=== PATIENT | female | born 1940 | race Caucasian/White ===

== ENCOUNTER 2017-12-18 05:08 | Outpatient (CLI) | payer MEDICARE | END 2017-12-18 23:59 | disposition home or self-care (01) | LOC: DIABETIC 05:08 | PROVIDERS: ATTEND Specialist | DX: E11.9 Type 2 diabetes mellitus without complications (principal) | CPT/HCPCS: G0108 ==

== ENCOUNTER 2018-05-04 00:27 | Outpatient (CLI) | payer MEDICARE | END 2018-05-04 23:59 | disposition home or self-care (01) | LOC: DIABETIC 00:27 | PROVIDERS: ATTEND Specialist | DX: E11.9 Type 2 diabetes mellitus without complications (principal) | CPT/HCPCS: G0108 ==

== ENCOUNTER 2018-09-16 01:18 | Outpatient (CLI) | payer MEDICARE, BC | END 2018-09-16 23:59 | disposition home or self-care (01) | LOC: DIABETIC 01:18 | PROVIDERS: ATTEND Specialist | DX: E11.9 Type 2 diabetes mellitus without complications (principal); Z79.84 Long term (current) use of oral hypoglycemic drugs; Z79.899 Other long term (current) drug therapy; Z79.4 Long term (current) use of insulin; Z91.030 Bee allergy status; Z91.048 Other nonmedicinal substance allergy status; Z88.8 Allergy status to other drugs, medicaments and biological substances | CPT/HCPCS: G0108 ==

== ENCOUNTER 2019-01-31 09:22 | Emergency (ER) | payer MEDICARE, BC ==
[~2019-01-31] VITALS: Ht 167.6 cm; Wt 100.0 kg
[2019-01-31 09:27] VITALS: BP 145/86
--- NOTE | 2019-01-31 11:17 | NUR ---
JANICE Brown FROM PTW AT BEDSIDE NOW EVALUATING THE PATIENT.
[2019-01-31] MEDS ORDERED: METO100T14 PO (11:53)
[2019-01-31] MEDS ORDERED: LANTUS SQ (11:53)
[2019-01-31] MEDS ORDERED: TURM538C PO (11:53)
[2019-01-31] MEDS ORDERED: DULO-31 PO (11:53)
[2019-01-31] MEDS ORDERED: METF500T PO (11:53)
[2019-01-31] MEDS ORDERED: MIRT15TA PO (11:53)
[2019-01-31] MEDS ORDERED: GLIP10TA11 PO (11:53)
--- NOTE | 2019-01-31 12:00 | NUR ---
NOTIFIED BY CHARGE NURSE MICHAEL THAT URINE WAS OBTAINED.
[2019-01-31] MEDS ORDERED: ROSU40TA PO (12:07)
[2019-01-31] MEDS ORDERED: [UNRECOGNIZED DRUG - OTHER] PO (12:07)
[2019-01-31] MEDS ORDERED: DABI150C PO (12:07)
[2019-01-31] MEDS ORDERED: FEXO-124 PO (12:07)
[2019-01-31] MEDS ORDERED: POTA10TA15 PO (12:07)
[2019-01-31] MEDS ORDERED: [UNRECOGNIZED DRUG - OTHER] (12:07)
[2019-01-31] MEDS ORDERED: cholecalciferol PO (12:07)
[2019-01-31] MEDS ORDERED: DILT-35 PO (12:07)
[2019-01-31] MEDS ORDERED: HYDR-4383 PO (12:07)
[2019-01-31] MEDS ORDERED: FURO-150 PO (12:07)
[2019-01-31 12:10] LABS: CLARITY,URINE CLOUDY (Clear); COLOR,URINE YELLOW (Yellow); GLUCOSE, URINE NEGATIVE (Neg); KETONES,URINE TRACE mg/dl (Neg); LEUKOCYTE ESTERASE ,URINE NEGATIVE (Neg); NITRITES, URINE POSITIVE (Neg); OCCULT BLOOD,URINE TRACE-INTACT (Neg); PH,URINE 5.5 (4.8-8.0); PROTEIN,URINE 30 mg/dl (Neg); UROBILINOGEN,URINE 0.2 E.U/dL (0.2-1.0)
[2019-01-31] MEDS ORDERED: MULT-1133 PO (12:11)
[2019-01-31] MEDS ORDERED: LACT1CAP74 PO (12:11)
[2019-01-31] MEDS ORDERED: ARIP5TAB4 PO (12:11)
[2019-01-31] MEDS ORDERED: VITA-268 PO (12:11)
[2019-01-31] MEDS ORDERED: FLUT16SP2 BOTHNARES (12:11)
[2019-01-31 12:13] LABS: BASOPHILS # (AUTO) 0.1 X10'3 (0-0.2); BASOPHILS % (AUTO) 0.6 % (0-1); EOSINOPHILS # (AUTO) 0.2 X10'3 (0-0.9); EOSINOPHILS % (AUTO) 1.7 % (0-6); HEMATOCRIT 34.5 % (35.0-45.0); HEMOGLOBIN 11.5 g/dl (12.0-16.0); LYMPHOCYTES # (AUTO) 1.8 X10'3 (1.1-4.8); LYMPHOCYTES % (AUTO) 19.6 % (21-51); MEAN CORPUSCULAR HEMOGLOBIN 28.9 PG (27.0-31.0); MEAN CORPUSCULAR HGB CONC 33.4 g/dL (33.0-36.5); MEAN CORPUSCULAR VOLUME 86.5 FL (78-98); MEAN PLATELET VOLUME 7.1 FL (7.4-10.4); MONOCYTES # (AUTO) 0.6 X10'3 (0-0.9); MONOCYTES % (AUTO) 6.6 % (2-12); NEUTROPHILS # (AUTO) 6.5 X10'3 (1.8-7.7); NEUTROPHILS % (AUTO) 71.5 % (42-75); PLATELET COUNT 353 X10'3 (140-440); RED BLOOD COUNT 3.99 X10'6 (4.20-5.60); RED CELL DISTRIBUTION WIDTH 15.8 % (11.5-14.5); WHITE BLOOD COUNT 9.1 X10'3 (4.5-11.0)
[2019-01-31 12:14] LABS: UA COLLECTION TYPE CLN CATCH MIDSTREAM
[2019-01-31 12:17] LABS: HYALINE CASTS 0-3 /LPF (NEGATIVE); MUCUS STRANDS MANY /LPF (Neg); SQUAMOUS EPITHELIAL CELL,UR MANY /LPF (FEW)
[2019-01-31 12:18] LABS: BACTERIA,URINE 4+ /HPF (Neg); RBC,URINE 0-2 /HPF (0-2)
[2019-01-31 12:22] LABS: ALANINE AMINOTRANSFERASE 26 U/L (12-78); ALBUMIN 3.3 G/DL (3.4-5.0); ALBUMIN/GLOBULIN RATIO 0.9 (1.1-1.5); ALKALINE PHOSPHATASE 87 IU/L (46-116); ANION GAP 8 (8-16); ASPARTATE AMINO TRANSFERASE 22 U/L (10-37); BILIRUBIN,TOTAL 0.4 MG/DL (0.1-1.0); BLOOD UREA NITROGEN 15 MG/DL (7-18); BUN/CREATININE RATIO 13.2 (6.6-38.0); CALCIUM 10.3 MG/DL (8.5-10.1); CHLORIDE 104 MMOL/L (99-107); CREATININE 1.14 MG/DL (0.40-0.90); GLUCOSE 96 MG/DL (70-104); POTASSIUM 4.2 MMOL/L (3.5-5.1); SODIUM 141 MMOL/L (135-145); TOTAL CARBON DIOXIDE 29.4 MMOL/L (24-32); TOTAL PROTEIN 7.1 G/DL (6.4-8.2); eGFR 46 ML/MIN
[2019-01-31 12:23] LABS: URINE AMPHETAMINE SCREEN NEGATIVE (Neg); URINE BARBITUATE SCREEN NEGATIVE (Neg); URINE BENZODIAZEPINES SCREEN POSITIVE (Neg); URINE CANNABINOID SCREEN NEGATIVE (Neg); URINE COCAINE SCREEN NEGATIVE (Neg); URINE METHADONE SCREEN NEGATIVE (Neg); URINE OPIATE SCREEN NEGATIVE (Neg); URINE PHENCYCLIDINE SCREEN NEGATIVE (Neg)
[2019-01-31 12:34] LABS: ETHANOL < 0.010 GM/DL (0.0-0.010)
[2019-02-07] MEDS ORDERED: MIRT15TA PO (11:33)
[2019-02-07] MEDS ORDERED: CIPR250T4 PO (11:33)
[2019-02-07] MEDS ORDERED: DULO-31 PO (11:33)
[2019-02-07] MEDS ORDERED: ARIP5TAB4 PO (11:34)
[2019-02-07] MEDS ORDERED: PRAZ1CAP5 PO (12:29)
== END 2019-01-31 13:13 ==
LOC: ER 09:24
DX: F32.9 Major depressive disorder, single episode, unspecified (principal); R45.851 Suicidal ideations; E66.9 Obesity, unspecified; I48.91 Unspecified atrial fibrillation; E78.00 Pure hypercholesterolemia, unspecified; I10 Essential (primary) hypertension; Z98.890 Other specified postprocedural states; Z79.899 Other long term (current) drug therapy; Z79.4 Long term (current) use of insulin
CPT/HCPCS: 36415; 80053; 80305; 80320; 81001; 84443; 85025; 99284; 99285

== ENCOUNTER 2019-01-31 13:00 | Inpatient (IN) | payer MEDICARE, BC | END 2019-02-07 12:40 | disposition still patient (30) | LOC: ED HOLD 13:00 → ADULT MH 02-05 11:45 | DX: F33.9 Major depressive disorder, recurrent, unspecified (principal); F43.10 Post-traumatic stress disorder, unspecified; F41.8 Other specified anxiety disorders; E11.9 Type 2 diabetes mellitus without complications ==

== ENCOUNTER 2019-04-19 10:27 | Emergency (ER) | payer MEDICARE, BC ==
[~2019-04-19] VITALS: Ht 162.6 cm; Wt 102.3 kg
[~2019-04-19 10:27] MED LIST: ARIP5TAB4 PO; CIPR250T4 PO; DABI150C PO; DILT-35 PO; DULO-31 PO; FEXO-124 PO; FLUT16SP2 BOTHNARES; FURO-150 PO; GLIP10TA11 PO; HYDR-4383 PO; LACT1CAP74 PO; LANTUS SQ; METF500T PO; METO100T14 PO; MIRT15TA PO; MULT-1133 PO; POTA10TA15 PO; PRAZ1CAP5 PO; ROSU40TA PO; TURM538C PO; VITA-268 PO; [UNRECOGNIZED DRUG - OTHER]; [UNRECOGNIZED DRUG - OTHER] PO; cholecalciferol PO
[2019-04-19 11:31] LABS: BASOPHILS # (AUTO) 0.1 X10'3 (0-0.2); BASOPHILS % (AUTO) 0.7 % (0-1); EOSINOPHILS # (AUTO) 0.1 X10'3 (0-0.9); EOSINOPHILS % (AUTO) 1.4 % (0-6); HEMATOCRIT 33.3 % (35.0-45.0); LYMPHOCYTES # (AUTO) 1.4 X10'3 (1.1-4.8); LYMPHOCYTES % (AUTO) 18.8 % (21-51); MEAN CORPUSCULAR HEMOGLOBIN 28.8 PG (27.0-31.0); MEAN CORPUSCULAR VOLUME 87.4 FL (78-98); MEAN PLATELET VOLUME 7.5 FL (7.4-10.4); MONOCYTES # (AUTO) 0.5 X10'3 (0-0.9); MONOCYTES % (AUTO) 6.7 % (2-12); NEUTROPHILS # (AUTO) 5.6 X10'3 (1.8-7.7); NEUTROPHILS % (AUTO) 72.4 % (42-75); PLATELET COUNT 281 X10'3 (140-440); RED BLOOD COUNT 3.81 X10'6 (4.20-5.60); RED CELL DISTRIBUTION WIDTH 14.8 % (11.5-14.5); WHITE BLOOD COUNT 7.7 X10'3 (4.5-11.0)
[2019-04-19] MEDS ORDERED: LORazepam 1 MG tablet PO ONE (11:40)
[2019-04-19 11:43] LABS: ALANINE AMINOTRANSFERASE 22 U/L (12-78); ALBUMIN 3.4 G/DL (3.4-5.0); ALBUMIN/GLOBULIN RATIO 0.9 (1.1-1.5); ALKALINE PHOSPHATASE 90 IU/L (46-116); ANION GAP 5 (8-16); ASPARTATE AMINO TRANSFERASE 22 U/L (10-37); BILIRUBIN,TOTAL 0.4 MG/DL (0.1-1.0); BLOOD UREA NITROGEN 19 MG/DL (7-18); BUN/CREATININE RATIO 17.9 (6.6-38.0); CALCIUM 9.7 MG/DL (8.5-10.1); CHLORIDE 103 MMOL/L (99-107); CREATININE 1.06 MG/DL (0.40-0.90); GLUCOSE 125 MG/DL (70-104); POTASSIUM 4.5 MMOL/L (3.5-5.1); SODIUM 138 MMOL/L (135-145); eGFR 50 ML/MIN
[2019-04-19 11:53] LABS: ETHANOL < 0.010 GM/DL (0.0-0.010)
[2019-04-19 12:33] LABS: CLARITY,URINE CLOUDY (Clear); COLOR,URINE YELLOW (Yellow); GLUCOSE, URINE NEGATIVE (Neg); KETONES,URINE TRACE mg/dl (Neg); LEUKOCYTE ESTERASE ,URINE TRACE (Neg); NITRITES, URINE POSITIVE (Neg); OCCULT BLOOD,URINE NEGATIVE (Neg); PROTEIN,URINE TRACE mg/dl (Neg); UROBILINOGEN,URINE 0.2 E.U/dL (0.2-1.0)
[2019-04-19 12:35] LABS: UA COLLECTION TYPE STRAIGHT CATH
[2019-04-19 12:39] LABS: BACTERIA,URINE 4+ /HPF (Neg); SQUAMOUS EPITHELIAL CELL,UR FEW /LPF (FEW); TRANSITIONAL EPI CELLS,URINE MODERATE /HPF
[2019-04-19 12:40] LABS: RBC,URINE 0-2 /HPF (0-2)
[2019-04-19 13:01] LABS: URINE AMPHETAMINE SCREEN NEGATIVE (Neg); URINE BARBITUATE SCREEN NEGATIVE (Neg); URINE BENZODIAZEPINES SCREEN POSITIVE (Neg); URINE CANNABINOID SCREEN NEGATIVE (Neg); URINE COCAINE SCREEN NEGATIVE (Neg); URINE METHADONE SCREEN NEGATIVE (Neg); URINE OPIATE SCREEN NEGATIVE (Neg); URINE PHENCYCLIDINE SCREEN NEGATIVE (Neg)
[2019-04-19] MEDS ORDERED: FURO-150 PO (13:01)
[2019-04-19] MEDS ORDERED: PRAZ1CAP5 PO (13:01)
[2019-04-19] MEDS ORDERED: METO100T14 PO (13:01)
[2019-04-19] MEDS ORDERED: ACET-2119 PO (13:01)
[2019-04-19] MEDS ORDERED: HYDR-4383 PO (13:01)
[2019-04-19] MEDS ORDERED: METF-436 PO (13:01)
[2019-04-19] MEDS ORDERED: FLUT16SP2 BOTHNARES (13:01)
[2019-04-19] MEDS ORDERED: GLIP10TA11 PO (13:01)
[2019-04-19] MEDS ORDERED: MIRT15TA PO (13:01)
[2019-04-19] MEDS ORDERED: VALB40CA PO (13:01)
[2019-04-19] MEDS ORDERED: ROSU40TA PO (13:01)
[2019-04-19] MEDS ORDERED: DULO60CA64 PO (13:01)
[2019-04-19] MEDS ORDERED: DABI150C PO (13:01)
[2019-04-19] MEDS ORDERED: CHOL100046 PO (13:01)
[2019-04-19] MEDS ORDERED: FEXO-62 PO (13:01)
[2019-04-19] MEDS ORDERED: POTA10TA15 PO (13:01)
[2019-04-19] MEDS ORDERED: CLON0.1T PO (13:01)
[2019-04-19] MEDS ORDERED: DILT-35 PO (13:01)
[2019-04-19] MEDS ORDERED: INSU100V9 SQ (13:01)
[2019-04-19] MEDS ORDERED: furosemide 20MG tablet PO PRN (13:30)
[2019-04-19] MEDS ORDERED: prazosin 1mg capsule PO PRN (13:30)
[2019-04-19] MEDS ORDERED: acetaminophen 325mg tablet PO PRN (13:30)
--- NOTE | 2019-04-19 14:35 | NUR ---
PT REQUESTED BED PAIN TO URINATE. TECH ASSISTED PT TO COMMODE.
[2019-04-19] MEDS: metFORMIN 500mg tablet PO SCH (18:15)
[2019-04-19] MEDS: glipizide 5mg tablet PO SCH (18:16)
[2019-04-19] MEDS ORDERED: cloNIDine 0.1 mg tablet PO SCH (20:00)
[2019-04-19] MEDS: metoprolol tartrate 50mg tablet PO SCH (20:00)
[2019-04-19] MEDS: mirtazapine 15mg tablet PO SCH (20:35)
[2019-04-19] MEDS: LORazepam 1 MG tablet PO SCH (20:35)
[2019-04-19] MEDS: busPIRone 5mg tablet PO SCH (20:36)
[2019-04-19] MEDS: dabigatran 150mg capsule PO SCH (21:49)
[2019-04-19] MEDS: insulin glargine (Lantus) pen - multi-dose SQ SCH (22:22)
--- NOTE | 2019-04-19 22:38 | NUR ---
ACCIDENTLY UNDER CATHY'S NAME FOR CHARTING ASSUMED CARE. CORRECT IS MILADIS. RECHARTED THESE BUT HIS ARE STILL THERE.
--- NOTE | 2019-04-19 22:39 | NUR ---
PATIENT NEEDS TWO PERSON ASSIST TO COMMODE
--- NOTE | 2019-04-19 22:52 | NUR ---
I returned the metoprolol, but forgot to scan it before I closed the lid, so it never showed it was returned. There was a very small amount of blood urinated in the commode. Will continue to monitor.
--- NOTE | 2019-04-20 06:13 | NUR ---
Transferred patient care to Meseret RN.
--- NOTE | 2019-04-20 06:30 | NUR ---
Patient requesting to use the commode. Assisted to the commode. Voided small amount. Returned to bed with assist.
[2019-04-20] MEDS ORDERED: VALBENAZINE TOSYLATE PO SCH (08:00)
--- NOTE | 2019-04-20 08:30 | NUR ---
Remains awake. States she feels urinary urgency. Assisted on to the commode. Voided small amount. Returned to bed. Assisted with breakfast. Both hands trembling. Ate only oatmeal and a little coffee cake. Fluids encouraged. Took sips of coffee. All medications administered as ordered.
[2019-04-20] MEDS: busPIRone 5mg tablet PO SCH ×2 (09:05→20:39)
[2019-04-20] MEDS: vitamin D (cholecalciferol) 1,000 unit tablet PO SCH (09:06)
[2019-04-20] MEDS: atorvastatin 20mg tablet PO SCH (09:06)
[2019-04-20] MEDS: cloNIDine 0.1 mg tablet PO SCH (09:09)
[2019-04-20] MEDS: glipizide 5mg tablet PO SCH ×2 (09:09→17:16)
[2019-04-20] MEDS: metoprolol tartrate 50mg tablet PO SCH ×2 (09:09→20:40)
[2019-04-20] MEDS: metFORMIN 500mg tablet PO SCH ×2 (09:09→17:16)
[2019-04-20] MEDS: diltiazem CD 120mg capsule (once-daily) PO SCH (09:09)
[2019-04-20] MEDS: dabigatran 150mg capsule PO SCH ×2 (09:10→20:39)
[2019-04-20] MEDS: duloxetine 30mg CAPSULE.DR PO SCH ×2 (09:10→20:40)
[2019-04-20] MEDS: potassium chloride 10mEq ER tablet PO SCH (09:10)
[2019-04-20] MEDS: loratadine 10mg tablet PO SCH (09:10)
[2019-04-20] MEDS: fluticasone nasal spray 16GM bottle NS SCH (09:11)
--- NOTE | 2019-04-20 09:30 | NUR ---
Bladder scanner used at this time to determine possible urinary retention. 660 ml noted to be in bladder. Order received for blackwell catheter. 440 ml returned.
--- NOTE | 2019-04-20 10:00 | NUR ---
at bedside visiting with . Presents as loving and devoted.
[2019-04-20] MEDS: VALBENAZINE 40 MG PO SCH (10:32)
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
[2019-04-20] MEDS: cephalexin 250mg capsule PO SCH ×3 (13:35→20:39)
[2019-04-20] MEDS ORDERED: mineral oil 133ml enema RC PRN (16:25)
--- NOTE | 2019-04-20 16:30 | NUR ---
Dr. George called to say he was talking with Dr. Katz about admitting patient to a medical floor as patient is unable to be accepted to [facility] as she does not meet the age critria at this time.
--- NOTE | 2019-04-20 16:45 | NUR ---
Charge Nurse Alyssia notified that Dr. George would like patient to be placed on a medical floor per protocol of the ER.
--- NOTE | 2019-04-20 17:41 | NUR ---
Spoke with Meseret RN regarding patient, she stated that psyciatrist stated that patient may need to be admitted due to chronic conditions. Dr. Torres stated that patient did not need psyciatric admit and would assist with over seeing patient on medical unit if needed. Dr. Torres spoke with Dr. Katz who stated that an ER physician would have to place patient up for admission. Peace RAGSDALE notified regarding this and gave verbal order for redraw on CBC and CMP, also that he would speak with Dr. Coulter regarding patients potential admit.
--- NOTE | 2019-04-20 17:51 | NUR ---
Mineral oil enema administered per patient request. Patient states she sufferes from irritable bowel syndrome and believes she is impacted. No results as of this time.
[2019-04-20 18:02] LABS: BASOPHILS # (AUTO) 0.1 X10'3 (0-0.2); BASOPHILS % (AUTO) 0.8 % (0-1); EOSINOPHILS # (AUTO) 0.1 X10'3 (0-0.9); EOSINOPHILS % (AUTO) 1.5 % (0-6); HEMOGLOBIN 11.1 g/dl (12.0-16.0); LYMPHOCYTES # (AUTO) 1.9 X10'3 (1.1-4.8); LYMPHOCYTES % (AUTO) 25.1 % (21-51); MEAN CORPUSCULAR HEMOGLOBIN 29.1 PG (27.0-31.0); MEAN CORPUSCULAR HGB CONC 33.7 g/dL (33.0-36.5); MEAN CORPUSCULAR VOLUME 86.4 FL (78-98); MEAN PLATELET VOLUME 7.3 FL (7.4-10.4); MONOCYTES # (AUTO) 0.6 X10'3 (0-0.9); MONOCYTES % (AUTO) 7.8 % (2-12); NEUTROPHILS # (AUTO) 4.9 X10'3 (1.8-7.7); NEUTROPHILS % (AUTO) 64.8 % (42-75); PLATELET COUNT 272 X10'3 (140-440); RED BLOOD COUNT 3.81 X10'6 (4.20-5.60); RED CELL DISTRIBUTION WIDTH 15.2 % (11.5-14.5); WHITE BLOOD COUNT 7.6 X10'3 (4.5-11.0)
[2019-04-20 18:16] LABS: ALANINE AMINOTRANSFERASE 20 U/L (12-78); ALBUMIN/GLOBULIN RATIO 0.8 (1.1-1.5); ALKALINE PHOSPHATASE 84 IU/L (46-116); ANION GAP 6 (8-16); ASPARTATE AMINO TRANSFERASE 18 U/L (10-37); BILIRUBIN,TOTAL 0.3 MG/DL (0.1-1.0); BLOOD UREA NITROGEN 15 MG/DL (7-18); CALCIUM 9.6 MG/DL (8.5-10.1); CHLORIDE 105 MMOL/L (99-107); CREATININE 1.07 MG/DL (0.40-0.90); GLUCOSE 81 MG/DL (70-104); POTASSIUM 4.4 MMOL/L (3.5-5.1); SODIUM 139 MMOL/L (135-145); TOTAL CARBON DIOXIDE 27.6 MMOL/L (24-32); TOTAL PROTEIN 6.7 G/DL (6.4-8.2); eGFR 50 ML/MIN
--- NOTE | 2019-04-20 19:05 | NUR ---
One to one with the patient to assess severity of depressive symptoms and self harm risk. The patient is very pleasant during the evening assessment. She stated that her anxiety is very high because she is unsure of what the next step is and where she will be going to from here. She denies any kind of auditory or visual hallucinations. She stated that her mood was "not as good as yesterday" "I have a whole host of problems and I think everyone would be better off without me" Stated that she has been depressed all of her life. She has never had a suicide attempt but prior to coming to the ER she was thinking about overdosing on all of her medications. She stated, "But I was afraid I would just mess things up. It's getting harder to do things from my wheelchair" She is fully oriented.
[2019-04-20] MEDS: LORazepam 1 MG tablet PO SCH (20:39)
[2019-04-20] MEDS: mirtazapine 15mg tablet PO SCH (20:40)
[2019-04-20] MEDS: insulin glargine (Lantus) pen - multi-dose SQ SCH (20:50)
--- NOTE | 2019-04-20 21:00 | NUR ---
Patient resting on her bed and appears to be asleep
--- NOTE | 2019-04-20 22:02 | NUR ---
Received telephone call from reported relatives of the patient stating they were the son and grand daughter. They became very angry when told information could not be given over the phone due to privacy laws. The grand daughter demanded to talk to manager inpatient and phone transferred to weathercaster. weathercaster was made aware of circumstances.
--- NOTE | 2019-04-21 00:26 | NUR ---
The patient appears to be asleep
--- NOTE | 2019-04-21 03:10 | NUR ---
The patient appears to be sleeping.
--- NOTE | 2019-04-21 03:11 | NUR ---
Placement Note: [facility] is continuing to look for placement. Per hospitalist the patient does not meet acuity to be admitted to a medical floor. Dr. George would like to be contacted if the patient is being considered for discharge.
--- NOTE | 2019-04-21 05:04 | NUR ---
The patient appears to be sleeping
--- NOTE | 2019-04-21 06:30 | NUR ---
Received report from Humaira ORELLANA Patient asleep at this time with C-PAP in place Breathing even and unlabored
--- NOTE | 2019-04-21 07:45 | NUR ---
Blood Glucose Performed = 60 Patient states she feels fine Given a box of juice Served breakfast Encouraged to eat all of her food Patient stated "I don't want to get fat." Encouraged to eat just the same
[2019-04-21] MEDS: metFORMIN 500mg tablet PO SCH (08:21)
[2019-04-21] MEDS: atorvastatin 20mg tablet PO SCH (08:22)
[2019-04-21] MEDS: busPIRone 5mg tablet PO SCH (08:22)
[2019-04-21] MEDS: glipizide 5mg tablet PO SCH (08:23)
[2019-04-21] MEDS: HYDROcodone/acetaminophen 5mg/325mg tablet PO PRN ×2 (08:23→15:14)
[2019-04-21] MEDS: cloNIDine 0.1 mg tablet PO SCH (08:23)
[2019-04-21] MEDS: vitamin D (cholecalciferol) 1,000 unit tablet PO SCH (08:24)
[2019-04-21] MEDS: cephalexin 250mg capsule PO SCH ×2 (08:24→13:57)
[2019-04-21] MEDS: duloxetine 30mg CAPSULE.DR PO SCH (08:24)
[2019-04-21] MEDS: dabigatran 150mg capsule PO SCH (08:26)
[2019-04-21] MEDS: VALBENAZINE 40 MG PO SCH (08:26)
[2019-04-21] MEDS: loratadine 10mg tablet PO SCH (08:26)
[2019-04-21] MEDS: fluticasone nasal spray 16GM bottle NS SCH (08:26)
[2019-04-21] MEDS: potassium chloride 10mEq ER tablet PO SCH (08:27)
--- NOTE | 2019-04-21 08:30 | NUR ---
Ate 90% of her meal. Patient states she is suffering from "sharp pains in her abdomen." Requesting to be disimpacted Dr. Bailey consulted. Order given to disimpact patient
[2019-04-21] MEDS: metoprolol tartrate 50mg tablet PO SCH (08:48)
[2019-04-21] MEDS: LORazepam 1 MG tablet PO PRN ×2 (08:48→15:13)
[2019-04-21] MEDS: diltiazem CD 120mg capsule (once-daily) PO SCH (08:55)
--- NOTE | 2019-04-21 09:30 | NUR ---
Patient disimpacted per her consent and doctor's order. Multiple hard balls of feces, of all sizes, removed from patient's rectum. Feces noted to have smears of armani blood around them. Nurse Alyssia consulted. Came to patient's room to observe feces. Stated she would speak with Dr. Bailey about this matter.
--- NOTE | 2019-04-21 09:40 | NUR ---
Per Dr. Bailey, blood in stool possiby secondary to hemorrhoids. Will contuinue to monitor.
--- NOTE | 2019-04-21 09:45 | NUR ---
Patient out of bed and into wheel chair. Bed linen changed and assisted into fresh gowns. Assited back into bed per her request
--- NOTE | 2019-04-21 11:35 | NUR ---
pt just got back into bed, talking with staff, no s/s of distress observed
--- NOTE | 2019-04-21 11:58 | NUR ---
spoke to Alberta at the [facility] [phone] went over pt medications with her, I told her that the primary RN would call her when she gets back with any questions
--- NOTE | 2019-04-21 14:24 | NUR ---
at bedside visiting with . Fabiola at bedside speaking with about possible discharge to home.
--- NOTE | 2019-04-21 14:48 | NUR ---
Patient states she is ready to go with . Dr. Bailey notified. Order given to discharge.
[2019-04-21] MEDS ORDERED: CEPH-572 PO (15:00)
--- NOTE | 2019-04-21 15:30 | NUR ---
Discharge Summary Patient discharged to home accompanied by , with all her personal belongings, including CPAP. Will follow-up with the day program at [facility]. and patient are satisfied with the discharge plan. Given a prescription for Keflex for UTI
[2019-04-21 16:22] VITALS: BP 125/75
[2019-04-22] MEDS ORDERED: VALBENAZINE PO SCH (08:00)
== END 2019-04-21 15:30 | disposition home or self-care (01) ==
LOC: ER 10:27
DX: F32.9 Major depressive disorder, single episode, unspecified (principal); I48.91 Unspecified atrial fibrillation; E78.00 Pure hypercholesterolemia, unspecified; I10 Essential (primary) hypertension
CPT/HCPCS: 36415; 80053; 80305; 80320; 81001; 82948; 84443; 85025; 96372; 99285; J1815; P9612

== ENCOUNTER 2019-06-08 11:07 | Emergency (ER) | payer MEDICARE, BC ==
[~2019-06-08] VITALS: Ht 162.6 cm; Wt 105.0 kg
[~2019-06-08 11:07] MED LIST changes: +ACET-2119 PO; -ARIP5TAB4 PO; +CHOL100046 PO; -CIPR250T4 PO; +CLON0.1T PO; -DULO-31 PO; +DULO60CA65 PO; -FEXO-124 PO; +FEXO-62 PO; +INSU100V9 SQ; -LACT1CAP74 PO; -LANTUS SQ; +METF-436 PO; -METF500T PO; -MULT-1133 PO; -TURM538C PO; +VALB40CA PO; -VITA-268 PO; -[UNRECOGNIZED DRUG - OTHER]; -[UNRECOGNIZED DRUG - OTHER] PO; -cholecalciferol PO
[2019-06-08 11:48] LABS: BASOPHILS % (AUTO) 0.5 % (0-1); EOSINOPHILS # (AUTO) 0.1 X10'3 (0-0.9); EOSINOPHILS % (AUTO) 0.8 % (0-6); HEMATOCRIT 40.7 % (35.0-45.0); HEMOGLOBIN 13.4 g/dl (12.0-16.0); LYMPHOCYTES # (AUTO) 1.8 X10'3 (1.1-4.8); LYMPHOCYTES % (AUTO) 18.4 % (21-51); MEAN CORPUSCULAR HEMOGLOBIN 28.8 PG (27.0-31.0); MEAN CORPUSCULAR VOLUME 87.2 FL (78-98); MEAN PLATELET VOLUME 7.2 FL (7.4-10.4); MONOCYTES # (AUTO) 0.7 X10'3 (0-0.9); MONOCYTES % (AUTO) 7.4 % (2-12); NEUTROPHILS # (AUTO) 7.2 X10'3 (1.8-7.7); NEUTROPHILS % (AUTO) 72.9 % (42-75); PLATELET COUNT 369 X10'3 (140-440); RED BLOOD COUNT 4.67 X10'6 (4.20-5.60); RED CELL DISTRIBUTION WIDTH 15.9 % (11.5-14.5); WHITE BLOOD COUNT 9.9 X10'3 (4.5-11.0)
[2019-06-08 12:04] LABS: ALANINE AMINOTRANSFERASE 26 U/L (12-78); ALBUMIN 3.4 G/DL (3.4-5.0); ALBUMIN/GLOBULIN RATIO 0.9 (1.1-1.5); ALKALINE PHOSPHATASE 102 IU/L (46-116); ANION GAP 10 (8-16); ASPARTATE AMINO TRANSFERASE 19 U/L (10-37); BILIRUBIN,TOTAL 0.5 MG/DL (0.1-1.0); BLOOD UREA NITROGEN 18 MG/DL (7-18); BUN/CREATININE RATIO 16.2 (6.6-38.0); CHLORIDE 100 MMOL/L (99-107); CREATININE 1.11 MG/DL (0.40-0.90); GLUCOSE 179 MG/DL (70-104); POTASSIUM 4.5 MMOL/L (3.5-5.1); SODIUM 134 MMOL/L (135-145); TOTAL CARBON DIOXIDE 23.6 MMOL/L (24-32); TOTAL PROTEIN 7.4 G/DL (6.4-8.2); eGFR 48 ML/MIN
[2019-06-08 12:12] LABS: ETHANOL < 0.010 GM/DL (0.0-0.010)
--- NOTE | 2019-06-08 13:15 | NUR ---
pt is sitting in wheel chair in room, assisted to bed and into gown
--- NOTE | 2019-06-08 13:30 | NUR ---
sc[facility] worker in with pt
--- NOTE | 2019-06-08 14:36 | NUR ---
pt is in bed, present, she is calm, no agitation noted
[2019-06-08 16:57] LABS: CLARITY,URINE CLOUDY (Clear); COLOR,URINE YELLOW (Yellow); GLUCOSE, URINE NEGATIVE (Neg); KETONES,URINE TRACE mg/dl (Neg); LEUKOCYTE ESTERASE ,URINE TRACE (Neg); NITRITES, URINE POSITIVE (Neg); OCCULT BLOOD,URINE NEGATIVE (Neg); PROTEIN,URINE NEGATIVE (Neg); URINE HCG NEGATIVE (NEG); UROBILINOGEN,URINE 0.2 E.U/dL (0.2-1.0)
[2019-06-08 17:03] LABS: UA COLLECTION TYPE CLN CATCH MIDSTREAM
[2019-06-08 17:04] LABS: BACTERIA,URINE 3+ /HPF (Neg); RBC,URINE 0-2 /HPF (0-2); SQUAMOUS EPITHELIAL CELL,UR MANY /LPF (FEW); WBC CLUMPS,URINE FEW /HPF (NEGATIVE)
[2019-06-08 17:08] LABS: URINE AMPHETAMINE SCREEN NEGATIVE (Neg); URINE BARBITUATE SCREEN NEGATIVE (Neg); URINE BENZODIAZEPINES SCREEN POSITIVE (Neg); URINE CANNABINOID SCREEN NEGATIVE (Neg); URINE COCAINE SCREEN NEGATIVE (Neg); URINE METHADONE SCREEN NEGATIVE (Neg); URINE OPIATE SCREEN NEGATIVE (Neg); URINE PHENCYCLIDINE SCREEN NEGATIVE (Neg)
--- NOTE | 2019-06-08 18:08 | NUR ---
PT RESTING IN BED
--- NOTE | 2019-06-08 19:15 | NUR ---
This patient is awake and well oriented. She complains of depression. Patient feels suicidal with a plan to smother herself with a plastic bag or perhaps overdose on medications. She denies homicidal ideation. This patient makes good eye contacet. Her thoughts are linear. This patient is wheelchair bound. She can transfer to the bedside commode with assistance. Patient uses CPAP at home. This residential mortgage underwriter will receive an order for hospital CPAP. This patient is advised that she is in a safe place. Q15 minute rounding is being done.
--- NOTE | 2019-06-08 19:18 | NUR ---
Deo Al, patients .
[2019-06-08] MEDS ORDERED: olanzapine 10mg tablet PO ONE (21:55)
[2019-06-08] MEDS ORDERED: olanzapine 10mg tablet PO SCH (21:55)
[2019-06-08] MEDS ORDERED: metoprolol tartrate 50mg tablet PO ONE (21:55)
[2019-06-08] MEDS ORDERED: metFORMIN 500mg tablet PO ONE (21:55)
[2019-06-08] MEDS ORDERED: LORazepam 1 MG tablet PO ONE (21:55)
--- NOTE | 2019-06-08 22:07 | NUR ---
This com writer spoke with patients by landline. Rx med list may not be acurate on the med rec. The patients will bring up a current medication list in the am. The following meds are needed tonight based on conversation with the . Mirtazapine 15 mg PO Zyprexa 10 mg PO Metoprolol 150 mg PO CPAP
[2019-06-08] MEDS ORDERED: mirtazapine 15mg tablet PO SCH (22:35)
[2019-06-08] MEDS ORDERED: mirtazapine 15mg tablet PO ONE (22:35)
--- NOTE | 2019-06-09 01:15 | NUR ---
Patient is non conpliant on the hospital cpap. Patient loosens mask frequently, making in ineffective. Patient placed on nasal cannula.
--- NOTE | 2019-06-09 01:17 | NUR ---
Patient up from bed. Ambulates to bathroom and back to bed.
--- NOTE | 2019-06-09 01:18 | NUR ---
Patients Sa02 is 95 percent on two litres.
--- NOTE | 2019-06-09 03:56 | NUR ---
Patient was up with assistance to bedside commode to void then back to bed.
[2019-06-09] MEDS ORDERED: METO-477 PO (09:31)
[2019-06-09] MEDS ORDERED: METO-467 PO (09:31)
[2019-06-09] MEDS ORDERED: OLAN5TAB5 PO ×2 (09:31)
[2019-06-09] MEDS ORDERED: KRIL1CAP PO (09:31)
[2019-06-09] MEDS ORDERED: DIAZ5TAB PO (09:34)
[2019-06-09] MEDS ORDERED: LACT1CAP26 PO (09:34)
[2019-06-09] MEDS ORDERED: MULT-1141 PO (09:34)
[2019-06-09] MEDS ORDERED: acetaminophen 325mg tablet PO PRN ×3 (10:00→19:55)
[2019-06-09] MEDS ORDERED: LORazepam 1 MG tablet PO PRN (10:00)
[2019-06-09] MEDS ORDERED: furosemide 20MG tablet PO PRN (10:00)
--- NOTE | 2019-06-09 11:45 | NUR ---
Pt up to urinate at [facility] 2 person assist. Foul dark desire urine. Urine specimen sent for a U/A.
[2019-06-09 12:06] LABS: CLARITY,URINE CLOUDY (Clear); COLOR,URINE YELLOW (Yellow); GLUCOSE, URINE NEGATIVE (Neg); KETONES,URINE NEGATIVE (Neg); LEUKOCYTE ESTERASE ,URINE TRACE (Neg); NITRITES, URINE POSITIVE (Neg); OCCULT BLOOD,URINE NEGATIVE (Neg); PH,URINE 5.5 (4.8-8.0); PROTEIN,URINE NEGATIVE (Neg); UROBILINOGEN,URINE 0.2 E.U/dL (0.2-1.0)
[2019-06-09 12:10] LABS: UA COLLECTION TYPE CLN CATCH MIDSTREAM
[2019-06-09 12:13] LABS: BACTERIA,URINE 4+ /HPF (Neg); HYALINE CASTS 0-3 /LPF (NEGATIVE); MUCUS STRANDS FEW /LPF (Neg); RBC,URINE NONE SEEN /HPF (0-2); SQUAMOUS EPITHELIAL CELL,UR MANY /LPF (FEW)
[2019-06-09] MEDS: diazepam 5mg tablet PO SCH ×2 (13:00→21:15)
--- NOTE | 2019-06-09 15:22 | NUR ---
Pt's brought in home C-Pap. Respiratory called engineering to check it out. Respiratory informed RN pt are to use hospital Cpap and not home cpap while in the hospital. Pt informed by RT. RT will set pt up on Cpap at bedtime.
[2019-06-09] MEDS ORDERED: metFORMIN 500mg tablet PO SCH (17:30)
[2019-06-09] MEDS: cephalexin 500mg capsule PO SCH ×2 (17:37→21:14)
[2019-06-09 17:58] VITALS: BP_DIAS 93
[2019-06-09] MEDS ORDERED: mag hydrox/Alum hydrox/simeth 30ml oral suspension PO PRN (19:55)
[2019-06-09] MEDS ORDERED: magnesium hydroxide 30ml (MOM) UD suspension PO PRN (19:55)
[2019-06-09] MEDS ORDERED: METOPROLOL TARTRATE PO SCH (20:00)
[2019-06-09] MEDS ORDERED: metoprolol tartrate 50mg tablet PO SCH (20:00)
[2019-06-09] MEDS ORDERED: duloxetine 30mg CAPSULE.DR PO SCH (20:00)
[2019-06-09] MEDS ORDERED: dabigatran 150mg capsule PO SCH (20:00)
[2019-06-09] MEDS ORDERED: OLANZapine 5mg rapidly disint. tablet PO SCH (21:00)
[2019-06-09] MEDS ORDERED: mirtazapine 15mg tablet PO SCH ×2 (21:00)
[2019-06-09 21:13] VITALS: BP_SYST 121
[2019-06-10] MEDS ORDERED: diltiazem CD 120mg capsule (once-daily) PO SCH (08:00)
[2019-06-10] MEDS ORDERED: multivitamins, therapeutics tablet PO SCH (08:00)
[2019-06-10] MEDS ORDERED: omega-3 acid ethyl esters 1GM capsule PO SCH (08:00)
[2019-06-10] MEDS ORDERED: loratadine 10mg tablet PO SCH (08:00)
[2019-06-10] MEDS ORDERED: lactobacillus rhamnosus 10,000 MMU CELLS/CAPSULE PO SCH (08:00)
[2019-06-10] MEDS ORDERED: vitamin D (cholecalciferol) 1,000 unit tablet PO SCH (08:00)
[2019-06-10] MEDS ORDERED: fluticasone nasal spray 16GM bottle NS SCH (08:00)
[2019-06-10] MEDS ORDERED: potassium chloride 10mEq ER tablet PO SCH (08:00)
[2019-06-10] MEDS ORDERED: OLANZapine 5mg rapidly disint. tablet PO SCH (08:00)
== END 2019-06-10 00:59 ==
LOC: ER 11:08
DX: F32.9 Major depressive disorder, single episode, unspecified (principal); R45.851 Suicidal ideations; I48.91 Unspecified atrial fibrillation; E78.00 Pure hypercholesterolemia, unspecified; I10 Essential (primary) hypertension; R06.02 Shortness of breath; Z98.890 Other specified postprocedural states; Z79.899 Other long term (current) drug therapy; Z79.4 Long term (current) use of insulin; Z88.8 Allergy status to other drugs, medicaments and biological substances
CPT/HCPCS: 36415; 80053; 80305; 80320; 81001; 81025; 82948; 84443; 85025; 94660; 94760; 99285

== ENCOUNTER 2019-06-09 22:10 | Inpatient (IN) | payer MEDICARE, BC ==
[~2019-06-09] VITALS: Ht 165.1 cm; Wt 83.0 kg
[~2019-06-09 22:10] MED LIST changes: +DIAZ5TAB PO; -GLIP10TA11 PO; -HYDR-4383 PO; -INSU100V9 SQ; +KRIL1CAP PO; +LACT1CAP26 PO; +METO-467 PO; +METO-477 PO; +MULT-1141 PO; +OLAN5TAB5 PO; -ROSU40TA PO; -VALB40CA PO
[2019-06-10] MEDS ORDERED: acetaminophen 325mg tablet PO PRN (00:05)
[2019-06-10] MEDS ORDERED: loperamide 2mg capsule PO PRN (00:05)
[2019-06-10 01:00] VITALS: BP 120/71
--- NOTE | 2019-06-10 02:23 | NUR ---
Pt wears CPAP @ night O2 25% Addendum: 06/10/19 at 0240 by Corie Reyes RN Amended: Links added.
--- NOTE | 2019-06-10 02:39 | NUR ---
Pt has DM neuropathy Addendum: 06/10/19 at 0240 by Corie Reyes RN Amended: Lisseth added.
[2019-06-10] MEDS ORDERED: furosemide 20MG tablet PO PRN (03:55)
--- NOTE | 2019-06-10 05:46 | NUR ---
PROFESSOR OF BUSINESS ADMINISTRATION NOTE: LEGAL HOLD: 5150 for DTS/Hx depression THIS SHIFT: Client presented to ED c/o of . Stated, "I can't do this anymore. I feel like putting a bag over my head and suffocating." Client has a long hx of depression and SA. This is the second admit to [facility] for depression. Client arrived on the unit at 01:00 via wheel chair accompanied by Raghu. Personal property was inventoried. The clients hospital gown was searched for contraband. The client is wearing a hospital gown as she is a two person assist to the bedside commode. Client is wheel chair bound. 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 Med hx include DM II (client takes Metformin, is not on insulin), Afib, HTN, IBS, GERD. Client was cooperative. RT setup CPAP. Client is on 2 L O2 when sleeping if she is not wearing her CPAP. Affect and mood are depressed. Client is linear and connected. Client wore CPAP while asleep.
[2019-06-10 08:00] VITALS: BP 138/81
[2019-06-10] MEDS ORDERED: METOPROLOL TARTRATE PO SCH (08:00)
[2019-06-10] MEDS ORDERED: non-formulary drug (Krill/Om3/Dha/Epa/Om6/Lip/Astx (Krill Oil 1,000 Mg Softgel) 1 EACH) PO SCH (08:00)
[2019-06-10] MEDS: diltiazem CD 120mg capsule (once-daily) PO SCH (08:23)
[2019-06-10] MEDS: vitamin D (cholecalciferol) 1,000 unit tablet PO SCH (08:23)
[2019-06-10] MEDS: loratadine 10mg tablet PO SCH (08:23)
[2019-06-10] MEDS: fluticasone nasal spray 16GM bottle NS SCH (08:23)
[2019-06-10] MEDS: duloxetine 30mg CAPSULE.DR PO SCH ×2 (08:23→21:24)
[2019-06-10] MEDS: OLANZapine 5mg rapidly disint. tablet PO SCH ×2 (08:23→21:24)
[2019-06-10] MEDS: multivitamins, therapeutics tablet PO SCH (08:23)
[2019-06-10] MEDS: metFORMIN 500mg tablet PO SCH ×2 (08:23→18:10)
[2019-06-10] MEDS: dabigatran 150mg capsule PO SCH ×2 (08:24→21:22)
[2019-06-10] MEDS: lactobacillus rhamnosus 10,000 MMU CELLS/CAPSULE PO SCH (08:24)
[2019-06-10] MEDS: cephalexin 500mg capsule PO SCH ×4 (08:24→21:22)
[2019-06-10] MEDS: diazepam 5mg tablet PO SCH ×2 (08:26→13:20)
[2019-06-10] MEDS: potassium chloride 10mEq ER tablet PO SCH (08:26)
[2019-06-10 08:33] LABS: CHOL/HDL RATIO 3.4 (0.00-4.99); CHOLESTEROL 214 MG/DL (0-200); HDL CHOLESTEROL 63 MG/DL (35-60); LDL CHOLESTEROL 129 MG/DL (50-100); TRIGLYCERIDES 145 MG/DL (20-135)
[2019-06-10 08:50] LABS: HEMOGLOBIN A1C 6.7 % (4.5-6.2)
[2019-06-10] MEDS: metoprolol tartrate 50mg tablet PO SCH ×2 (08:51→21:23)
[2019-06-10] MEDS ORDERED: tuberculin, purif. prot. deriv. 5 units/0.1ml ID ONE (10:00)
[2019-06-10] MEDS: LORazepam 1 MG tablet PO SCH ×2 (16:06→21:22)
--- NOTE | 2019-06-10 17:21 | NUR ---
Nursing Progress Note: Legal hold: 5250 Client on involuntary status for DTS. Report received from CAMILO Diaz with use of SBAR. Why are they here: Pt. admitted to unit from ER via wheel chair. Pt. admitted for suicidal ideation stating that she wanted to from not eating or drinking. Pt.'s son Emeka actively involved and trying to obtain POA, his number is [phone]. Assessment: What has happened this shift: Received patient pacing in hallway in hospital gow. Patient remained isolated to self and did not initiate interaction with others. Patient refused groups and during meal times stated she was not hungry, but did come down and eat a little. MOCA performed on patient today. the patient was resistant to completing and appeared that her anxiety somewhat influenced the results of the test. Results were . Patient denies suicidal ideation but endorses depression and anxiety. Patient denies auditory hallucinations. Patient does appear internally preoccupied at times, but could be racing thoughts related to anxiety. S/I, H/I: Denies A/VH: Denies Sleep: no naps today ADL's: independent Group attendance: no Were meds taken: Yes Any med S/E: None reported or observed. Mental Status Exam: Appearance: hair unkept, wearing green scrubs Eye contact: Direct Behavior: anxious but cooperative. Stays to self. Speech: Clear, steady pace Mood: appears agitated AEB not wanting to communicate and answering with short responses Affect: Flat Thought process: concrete Thought Content: needing BM Cognition: A& O X2 (self & place) Insight: Poor. Judgment: Poor. Interventions PRN's used: no Therapeutic interventions: 1:1 to assess for severity of symptoms, therapeutic listening/conversation, encouragement to leave room/attend groups, medication administration/monitoring/education, Q 15 min checks. Restraints/seclusion/emergency medication:None Justification of Continued Inpatient Treatment: Pt needs medication adjustment/crisis stabilization in a safe, therapeutic environment.
--- NOTE | 2019-06-10 18:24 | NUR ---
Nursing Progress Note: Legal hold: 5150 Client on involuntary status for DTS Report received from Jacquelin Howard RN with use of SBAR Why are they here: Pt recently started on zyprexa and reports increased depression with increase suicidal thoughts. Assessment What has happened this shift: Received patient in bed. Patient initially refusing to get up for breakfast and said she just wanted to sleep, but when encouraged patient did attend breakfast. Patient remains a two person assist from the bed to wheelchair or commode. Patient has flat affect and continues to endorse depression with vague S.I. With encouragement patient did attend meals and groups. S/I, H/I: vague S.I. A/VH: denies Sleep: napping on and off throughout the day ADL's: with assistance Group attendance: yes Were meds taken: yes Any med S/E none reported or noted Mental Status Exam Appearance: hospital gown Eye contact: fair Behavior: cooperative, resistive to unit activites Speech: clear Mood: depressed Affect: flat/depressed Thought process: intact Thought Content: Sensible Cognition: intact Insight: fair Judgment: fair Interventions PRN's used: none Therapeutic interventions: 1:1 interaction, therapeutic groups, milieu push, Restraints/seclusion/emergency medication: n/a Justification of Continued Inpatient Treatment: Pt remains depressed with vague suicidal thoughts and apathy.
[2019-06-10 19:50] VITALS: BP 114/64
[2019-06-10] MEDS: mirtazapine 15mg tablet PO SCH (21:24)
--- NOTE | 2019-06-10 22:56 | NUR ---
Pt on 2L at night. Addendum: 06/10/19 at 2257 by Corie Reyes RN Amended: Links added.
--- NOTE | 2019-06-11 02:46 | NUR ---
Nursing Progress Note: Legal hold: 5150 Exp 06/13 @ 0100 Client on involuntary status for DTS Report received from REYNA Guardado with use of SBAR Why are they here: Pt presented to ER due to suicidal ideation. Pt wanted to end her life by putting a plastic bag over her head to suffocate or overdose on pills. Pt recently had a medication change and the suicide thoughts have been overwhelming. Assessment What has happened this shift: Pt visible on unit at shift change. Pt uses wheelchair to get around. Pt states her is coming to visit this evening. Pt states she had trouble getting out of bed this morning because she was tired. Pt didn't get on unit until 0100 and had issues with the CPAP machine. Later pt states she had a good visit with , but was ready for bed. Pt medication compliant and with 1:1 assessment. Pt ACHS, however blood sugars have been 128- 172. Pt's HS blood glucose was 128. Pt reports anxiety and depression 06/01. Pt endorses passive SI, but with no plan. Pt contracts for safety while she is on unit. When asked if she would harm herself if she went home pt states "I am not sure." Pt states she has been feeling depressed for a few months and that deep breathing, and music can help distract her. Pt endorses anhedonia- she enjoys reading, but hasn't been able to concentrate on it because of her depression. Pt was using CPAP 25% @ night,but doesn't like the mask. Pt is on 2L with Sats 96% - 98%. Pt on Keflex for pre admission UTI. Pt currently sleeping with no distress noted. Need to monitor under pannus and coccyx area. S/I, H/I: Passive thoughts, no plan. A/VH: None reported or observed. Sleep: Currently sleeping with no distress. Pt on 2L oxygen @ night. ADL's: Assistance. 2PA, wheelchair bound (partially paralyzed). Pt uses bedside commode. Group attendance: material handler 1st shift, no group. Were meds taken: Medication compliant Any med S/E: None reported or observed Mental Status Exam Appearance: Disheveled. wearing green hospital gown Eye contact: Fair Behavior: Cooperative, fatigued, anxious Speech: Clear, normal rate and rhythm Mood: Depressed Affect: Flat Thought process: Linear Thought Content: Depressed - pt not speaking a lot, just wants to go to bed. Cognition: A&Ox4 Insight: Fair Judgment: Fair Interventions PRN's used: None Therapeutic interventions: 1:1 therapeutic assessment, active listening, medication administration/education/monitoring, maintained therapeutic milieu, ensured contract for safety; Q15 min safety checks, administer 2L NC O2. Restraints/seclusion/emergency medication: N/A Justification of Continued Inpatient Treatment: Pt remains depressed with vague suicidal thoughts and apathy, requiring medication management and a therapeutic milieu to interrupt current crisis.
[2019-06-11 07:34] VITALS: BP 127/85
[2019-06-11] MEDS: fluticasone nasal spray 16GM bottle NS SCH (08:00)
[2019-06-11] MEDS: cephalexin 500mg capsule PO SCH ×4 (08:04→21:07)
[2019-06-11] MEDS: potassium chloride 10mEq ER tablet PO SCH (08:04)
[2019-06-11] MEDS: multivitamins, therapeutics tablet PO SCH (08:04)
[2019-06-11] MEDS: LORazepam 1 MG tablet PO SCH ×4 (08:04→21:06)
[2019-06-11] MEDS: vitamin D (cholecalciferol) 1,000 unit tablet PO SCH (08:04)
[2019-06-11] MEDS: duloxetine 30mg CAPSULE.DR PO SCH ×2 (08:05→21:08)
[2019-06-11] MEDS: loratadine 10mg tablet PO SCH (08:05)
[2019-06-11] MEDS: OLANZapine 5mg rapidly disint. tablet PO SCH ×2 (08:05→21:07)
[2019-06-11] MEDS: lactobacillus rhamnosus 10,000 MMU CELLS/CAPSULE PO SCH (08:06)
[2019-06-11] MEDS: diltiazem CD 120mg capsule (once-daily) PO SCH (08:06)
[2019-06-11] MEDS: metoprolol tartrate 50mg tablet PO SCH ×2 (08:06→21:08)
[2019-06-11] MEDS: metFORMIN 500mg tablet PO SCH ×2 (08:06→17:39)
[2019-06-11] MEDS: dabigatran 150mg capsule PO SCH ×2 (08:06→21:07)
--- NOTE | 2019-06-11 16:12 | NUR ---
Nursing Progress Note: Legal hold: 5150 Client on involuntary status for DTS Report received from Jacquelin Howard RN with use of SBAR Why are they here: Pt recently started on zyprexa and reports increased depression with increase suicidal thoughts. Assessment What has happened this shift: Received patient sleeping in bed w/o distress at change of shift. Pt awoke and attended breakfast and complained of being very tired. She took AM meds and wheeled herself back to her room. Patient remains a two person assist from the bed to wheelchair or commode and needs assist with adls. Patient has flat affect and continues to endorse depression with vague S.I. She is pleasant and cooperative with staff and others, although does not initiate interactions.With encouragement patient did attend meals and groups. Tired today and napped in AM and PM. Cooperative with blood glucose checks which are high, but pt refuses insulin. S/I, H/I: vague S.I. A/VH: denies Sleep: napping on and off throughout the day ADL's: with assistance Group attendance: yes Were meds taken: yes Any med S/E none reported or noted Mental Status Exam Appearance: hospital gown Eye contact: fair Behavior: cooperative, tired and lethargic Speech: clear Mood: depressed Affect: flat/depressed Thought process: intact Thought Content: Sensible Cognition: intact Insight: fair Judgment: fair Interventions PRN's used: none Therapeutic interventions: 1:1 interaction, therapeutic groups, milieu push, Restraints/seclusion/emergency medication: n/a Justification of Continued Inpatient Treatment: Pt remains depressed suicidal thoughts, depression and apathy.
[2019-06-11 20:00] VITALS: BP 109/67
[2019-06-11] MEDS: mirtazapine 15mg tablet PO SCH (21:08)
--- NOTE | 2019-06-12 02:35 | NUR ---
Nursing Progress Note: Legal hold: 5150 Exp 06/13 @ 0100 Client on involuntary status for DTS Report received from REYNA Guardado with use of SBAR Why are they here: Pt presented to ER due to suicidal ideation. Pt wanted to end her life by putting a plastic bag over her head to suffocate or overdose on pills. Pt recently had a medication change and the suicide thoughts have been overwhelming. Assessment What has happened this shift: Pt was visible on unit at shift change. Pt requested help to the commode. Pt continues to be a 2PA. Pt pleasant and cooperative. Pt c/o of feeling tired, but is waiting to go to bed until after visiting hours. 1:1 assessment completed at bedside. Pt endorses depression 7/10 and vague SI. Denies A/VH. HS blood glucose was 123. Pt medication compliant. Pt retires to bed as soon as visiting hours are over. 'I don't understand why I am so tired." S/I, H/I: Vague thoughts, no plan. A/VH: None reported or observed. Sleep: Currently sleeping with no distress. Pt on 2L oxygen @ night. ADL's: Assistance. 2PA, wheelchair bound (partially paralyzed). Pt uses bedside commode. Group attendance: security shift supervisor, no group. Were meds taken: Medication compliant Any med S/E: None reported or observed Mental Status Exam Appearance: Disheveled. wearing green [facility] gown Eye contact: Fair Behavior: Cooperative, fatigued, anxious Speech: Clear, normal rate and rhythm Mood: Depressed Affect: Flat, depressed Thought process: Linear Thought Content: Depressed - pt not speaking a lot, just wants to go to bed. Cognition: A&Ox4 Insight: Fair Judgment: Fair Interventions PRN's used: None Therapeutic interventions: 1:1 therapeutic assessment, active listening, medication administration/education/monitoring, maintained therapeutic milieu, ensured contract for safety; Q15 min safety checks, administer 2L NC O2. Restraints/seclusion/emergency medication: N/A Justification of Continued Inpatient Treatment: Pt remains depressed with vague suicidal thoughts and apathy, requiring medication management and a therapeutic milieu to interrupt current crisis. Addendum: 06/12/19 at 0239 by Corie Reyes RN Behavior: Pt has a lip tremor
[2019-06-12] MEDS: duloxetine 30mg CAPSULE.DR PO SCH ×2 (07:33→20:00)
[2019-06-12] MEDS: potassium chloride 10mEq ER tablet PO SCH (07:33)
[2019-06-12] MEDS: multivitamins, therapeutics tablet PO SCH (07:33)
[2019-06-12] MEDS: fluticasone nasal spray 16GM bottle NS SCH (07:33)
[2019-06-12] MEDS: metoprolol tartrate 50mg tablet PO SCH ×2 (07:34→20:00)
[2019-06-12] MEDS: cephalexin 500mg capsule PO SCH ×4 (07:35→21:00)
[2019-06-12] MEDS: LORazepam 1 MG tablet PO SCH ×2 (07:35→13:29)
[2019-06-12] MEDS: vitamin D (cholecalciferol) 1,000 unit tablet PO SCH (07:35)
[2019-06-12] MEDS: loratadine 10mg tablet PO SCH (07:36)
[2019-06-12] MEDS: lactobacillus rhamnosus 10,000 MMU CELLS/CAPSULE PO SCH (07:36)
[2019-06-12] MEDS: OLANZapine 5mg rapidly disint. tablet PO SCH ×2 (07:36→21:00)
[2019-06-12] MEDS: dabigatran 150mg capsule PO SCH ×2 (07:37→20:00)
[2019-06-12] MEDS: metFORMIN 500mg tablet PO SCH ×2 (07:37→17:43)
[2019-06-12] MEDS: diltiazem CD 120mg capsule (once-daily) PO SCH (07:37)
[2019-06-12 07:57] VITALS: BP 121/72
--- NOTE | 2019-06-12 10:19 | NUR ---
Morning Nursing Progress Note: Legal hold: 5150 Client on involuntary status for DTS Report received from Jacquelin Howard RN with use of SBAR Why are they here: Pt presented to ER due to suicidal ideation. Pt wanted to end her life by putting a plastic bag over her head to suffocate or overdose on pills. Pt recently had a medication change and the suicide thoughts have been overwhelming. Assessment What has happened this shift: Patient is awoken to take her medications. She states that she would like each medication gone over and when doing so, patient kept falling back asleep. She was easily awoken and quickly responds when spoken to. She reports that she slept well last night. She takes all her medication, about 3pills at a time, without issue. Techs provided bed bath and then patient joined others in the group room for breakfast. She is friendly in conversation. Patient states that she still feels depressed. Report given to Angel ORELLANA.
[2019-06-12] MEDS: LORazepam 0.5 MG tablet PO SCH ×3 (17:27→23:02)
--- NOTE | 2019-06-12 18:18 | NUR ---
Nursing Progress Note: Legal hold: 5150 Exp 06/13 @ 0100 Client on involuntary status for DTS Report received from CAMILO Diaz with use of SBAR Why are they here: Pt presented to ER due to suicidal ideation. Pt wanted to end her life by putting a plastic bag over her head to suffocate or overdose on pills. Pt recently had a medication change and the suicide thoughts have been overwhelming. Assessment What has happened this shift: Pt returned to room after meals to nap. When asked if she was still feeling depressed, pt replied, "yes, but I'm doing better," rated her depression at a 6-7/10, denied SI/HI/AH/VH. Pt c/o feeling tired and that she just wants to sleep all of the time. Psychiatrist decreased routine Ativan from 1 mg PO QID to 0.5 mg PO QID with instructions to hold her dinner time dose today. Pt has hand and facial/lip tremors though able to feed herself. S/I, H/I: Pt denies A/VH: Pt denies Sleep: Napped off and on for much of the day, ADL's: paraplegic, 2 person assist for transfers into w/c and onto commode, pt able to propel her own w/c Group attendance: Yes, attended am group but slept through afternoon group Were meds taken: Yes Any med S/E: increased sleepiness Mental Status Exam Appearance: Neat, clean in hospital gown Eye contact: Good Behavior: Pleasant, cooperative Speech: Clear, normal rate and rhythm Mood: Depressed Affect: Depressed Thought process: Linear Thought Content: states her depression is better, c/o feeling like sleeping all of the time Cognition: A&Ox4 Insight: Fair Judgment: Fair Interventions PRN's used: None Therapeutic interventions: 1:1 therapeutic assessment, therapeutic conversation, medication administration/education/monitoring, assistance with transfers, toileting, and ADLs, Q 15 min safety checks. Restraints/seclusion/emergency medication: N/A Justification of Continued Inpatient Treatment: Pt remains depressed with increased fatigue requiring medication management and a therapeutic milieu to interrupt current crisis.
[2019-06-12 19:52] VITALS: BP 114/70
[2019-06-12] MEDS: mirtazapine 15mg tablet PO SCH (21:00)
--- NOTE | 2019-06-13 02:59 | NUR ---
Nursing Progress Note: Legal hold: 5150 Exp 06/13 @ 0100 Client on involuntary status for DTS Report received from CAMILO Guardado with use of SBAR Why are they here: Pt presented to ER due to suicidal ideation. Pt wanted to end her life by putting a plastic bag over her head to suffocate or overdose on pills. Pt recently had a medication change and the suicide thoughts have been overwhelming. Assessment What has happened this shift: Pt coloring in group room at start of shift. he of 52 years here for visiting hour. Pt uses W/C to get around needs assist to transfer to bed.Pt denies SI still depressed. Ativan held at HS pt asleep by HS med pass. Pt woke up about 2330 and requested and was given HS Ativan dose. S/I, H/I: Pt denies A/VH: Pt denies Sleep: asleep at this time ADL's: paraplegic, 2 person assist for transfers into w/c and onto commode, pt able to propeNAYes, attended am group but slept through afternoon group Were meds taken: Yes Any med S/E: increased sleepiness Mental Status Exam Appearance: Neat, clean in hospital gown Eye contact: Good Behavior: Pleasant, cooperative Speech: Clear, normal rate and rhythm Mood: Depressed Affect: Depressed Thought process: Linear Thought Content: states her depression is better, c/o feeling like sleeping all of the time Cognition: A&Ox4 Insight: Fair Judgment: Fair Interventions PRN's used: None Therapeutic interventions: 1:1 therapeutic assessment, therapeutic conversation, medication administration/education/monitoring, assistance with transfers, toileting, and ADLs, Q 15 min safety checks. Restraints/seclusion/emergency medication: N/A Justification of Continued Inpatient Treatment: Pt remains depressed with increased fatigue requiring medication management and a therapeutic milieu to interrupt current crisis.
[2019-06-13] MEDS: metFORMIN 500mg tablet PO SCH ×2 (07:42→17:24)
[2019-06-13] MEDS: fluticasone nasal spray 16GM bottle NS SCH (07:42)
[2019-06-13] MEDS: LORazepam 0.5 MG tablet PO SCH ×4 (07:43→21:32)
[2019-06-13] MEDS: loratadine 10mg tablet PO SCH (07:43)
[2019-06-13] MEDS: lactobacillus rhamnosus 10,000 MMU CELLS/CAPSULE PO SCH (07:43)
[2019-06-13] MEDS: vitamin D (cholecalciferol) 1,000 unit tablet PO SCH (07:43)
[2019-06-13] MEDS: duloxetine 30mg CAPSULE.DR PO SCH ×2 (07:43→21:33)
[2019-06-13] MEDS: cephalexin 500mg capsule PO SCH ×4 (07:43→21:37)
[2019-06-13] MEDS: multivitamins, therapeutics tablet PO SCH (07:43)
[2019-06-13] MEDS: OLANZapine 5mg rapidly disint. tablet PO SCH ×2 (07:45→21:32)
[2019-06-13] MEDS: metoprolol tartrate 50mg tablet PO SCH ×2 (07:46→21:34)
[2019-06-13 08:00] VITALS: BP 110/78
[2019-06-13] MEDS: diltiazem CD 120mg capsule (once-daily) PO SCH (08:00)
[2019-06-13] MEDS: potassium chloride 10mEq ER tablet PO SCH (08:00)
[2019-06-13] MEDS: dabigatran 150mg capsule PO SCH ×2 (11:39→21:32)
--- NOTE | 2019-06-13 16:43 | NUR ---
Nursing Progress Note: Legal hold: VOL, DTS Report received from REYNA Tong with use of SBAR Why are they here: Pt presented to ER due to suicidal ideation. Pt wanted to end her life by putting a plastic bag over her head to suffocate or overdose on pills. Pt recently had a medication change and the suicide thoughts have been overwhelming. Assessment What has happened this shift: Patient is observed sleeping at change of shift. When she awakes she requests to use the batqhroom and states she feels like she cannot go. Patient voided 200mL in commode but continues to report feeling like she needs to urinate. Bladder scan performed , 406mL remianed. Patient was able to void another 375mL after breakfast. Patient takes all of her medications without issue except Pradaxa because it was not available until 1130, it was administered at that time. Patient is friendly and attends groups. She brushes her hair before attending group. She is polite to other pts and staff. S/I, H/I: Pt denies A/VH: Pt denies Sleep: 8.25hrs NOC and rested during the day ADL's: paraplegic, 2 person assist for transfers into w/c and onto commode, brushed hair, bed bath 06/12. Group attendance: yes Were meds taken: Yes Any med S/E: increased sleepiness Mental Status Exam Appearance: appropriate Eye contact: direct Behavior: Pleasant, cooperative Speech: Clear, normal rate and rhythm Mood: Depressed Affect: flat Thought process: Linear Thought Content: concerned about her bladder Cognition: A&Ox4 Insight: Fair Judgment: Fair Interventions PRN's used: None Therapeutic interventions: 1:1 therapeutic assessment, provided active listening with positive feedback, maintained safe therapeutic milieu, provided medication education as needed, monitored for change in behavior and Q15 minute checks, maintained therapeutic. Restraints/seclusion/emergency medication: N/A Justification of Continued Inpatient Treatment: Pt remains depressed with increased fatigue. Continued therapeutic support and medication management needed to provide stabilization, prevent decompensation, decreasing risk to patient and readmittance.
[2019-06-13 20:28] VITALS: BP 103/64
[2019-06-13] MEDS: mirtazapine 15mg tablet PO SCH (21:32)
--- NOTE | 2019-06-14 01:34 | NUR ---
Nursing Progress Note: Legal hold: JOSHUA DTS Report received from REYNA Guardado with use of SBAR Why are they here: Pt presented to ER due to suicidal ideation. Pt wanted to end her life by putting a plastic bag over her head to suffocate or overdose on pills. Pt recently had a medication change and the suicide thoughts have been overwhelming. Assessment What has happened this shift: Pt pushing herself in her wheelchair from group room to her room at start of shift. Pt said she did not have a good day. She feels depressed, "I am a burden to everyone." She says she is a burden to her because he takes care of her at home and it is really hard on him. Pt began to cry. Pt does not have any children or any other support system. She does have a caregiver that comes in 3X per week and bathes her. Pt said "I have to stop crying because my is coming to visit." Pt was able to stop crying. Pt and another couple came to visit pt. Lots of laughing and animated conversation. After visiting hour pt went in the exam room with Dr. George. Pt affect a little brighter. She said the was going to start her on a new medication tomorrow. Pt helped to bathroom x2 this shift denied problems with urination. Wears O2 via NC for sleep. Took HS medications and went to sleep. S/I, H/I: Pt denies A/VH: Pt denies Sleep: sleeping at this time ADL's: paraplegic, 2 person assist for transfers into w/c and onto commode, bed bath 06/12. Group attendance: yes Were meds taken: Yes Any med S/E: no Mental Status Exam Appearance: appropriate Eye contact: direct Behavior: Pleasant, cooperative Speech: Clear, normal rate and rhythm Mood: Depressed Affect: flat Thought process: Linear Thought Content: does not want to be a burden to her Cognition: A&Ox4 Insight: Fair Judgment: Fair Interventions PRN's used: None Therapeutic interventions: 1:1 therapeutic assessment, provided active listening with positive feedback, maintained safe therapeutic milieu, provided medication education as needed, monitored for change in behavior and Q15 minute checks, Restraints/seclusion/emergency medication: N/A Justification of Continued Inpatient Treatment: Pt remains depressed with increased fatigue. Continued therapeutic support and medication management needed to provide stabilization, prevent decompensation, decreasing risk to patient and readmittance.
[2019-06-14] MEDS: fluticasone nasal spray 16GM bottle NS SCH (07:52)
[2019-06-14] MEDS: dabigatran 150mg capsule PO SCH ×2 (07:52→20:42)
[2019-06-14] MEDS: metoprolol tartrate 50mg tablet PO SCH ×2 (07:53→20:42)
[2019-06-14] MEDS: diltiazem CD 120mg capsule (once-daily) PO SCH (07:53)
[2019-06-14] MEDS: multivitamins, therapeutics tablet PO SCH (07:54)
[2019-06-14] MEDS: loratadine 10mg tablet PO SCH (07:54)
[2019-06-14] MEDS: cephalexin 500mg capsule PO SCH ×4 (07:54→20:42)
[2019-06-14] MEDS: duloxetine 30mg CAPSULE.DR PO SCH ×2 (07:54→20:41)
[2019-06-14] MEDS: metFORMIN 500mg tablet PO SCH ×2 (07:54→17:14)
[2019-06-14] MEDS: LORazepam 0.5 MG tablet PO SCH ×4 (07:54→20:42)
[2019-06-14] MEDS: potassium chloride 10mEq ER tablet PO SCH (07:54)
[2019-06-14] MEDS: vitamin D (cholecalciferol) 1,000 unit tablet PO SCH (07:55)
[2019-06-14] MEDS: lactobacillus rhamnosus 10,000 MMU CELLS/CAPSULE PO SCH (07:55)
[2019-06-14] MEDS: OLANZapine 5mg rapidly disint. tablet PO SCH ×2 (07:55→20:42)
[2019-06-14] MEDS ORDERED: dextroamphetamine/amphetamine 5mg tablet PO SCH ×2 (08:00→18:49)
[2019-06-14 08:38] VITALS: BP 125/74
--- NOTE | 2019-06-14 10:21 | NUR ---
Initial: Pt admit w/ SI hx partial paralysis WC bound, PO fluctuates 50-75% avg carb controlled diet. [facility] 06/13. Will continue to monitor for PO hx and, if declines, ONS needs. Rec: 1. continue carb controlled diet 2. monitor for ONS needs 3. wt per rx Addendum: 06/14/19 at [address] Amended: Links added.
--- NOTE | 2019-06-14 16:52 | NUR ---
Nursing Progress Note: Legal hold: VOL, DTS Report received from REYNA Cortez with use of SBAR Why are they here: Pt presented to ER due to suicidal ideation. Pt wanted to end her life by putting a plastic bag over her head to suffocate or overdose on pills. Pt recently had a medication change and the suicide thoughts have been overwhelming. Assessment What has happened this shift: Patient is observed sleeping at change of shift. Patient wakes and c/o difficulty urinating again this morning. Patient was able to use the bedside commode with some relief. Medications administered and after breakfast patient was able to use commode again, reporting feeling like she fully emptied her bladder. She continues to need assistance with getting to her wheelchair and then back to bed but is wheeling herself to the group room and then back to her room. She sadly states that she would give anything to walk. Patient is seen by PT today and they state that they will work with her daily. Patient expresses depression reporting that if she gets up she doesnt know what to do with herself and thats why she just sleeps. She attends both groups. S/I, H/I: Pt denies A/VH: Pt denies Sleep: 7hrs NOC and rested during the day ADL's: paraplegic, 2 person assist for transfers into w/c and onto commode, brushed hair, bed bath 06/12. Group attendance: yes Were meds taken: Yes Any med S/E: tremors in hands, mouth movements Mental Status Exam Appearance: appropriate Eye contact: direct Behavior: Pleasant, cooperative Speech: Clear, normal rate and rhythm Mood: Depressed Affect: flat Thought process: Linear Thought Content: no delusion thought content expressed today Cognition: A&Ox4 Insight: Fair Judgment: Fair Interventions PRN's used: None Therapeutic interventions: 1:1 therapeutic assessment, provided active listening with positive feedback, maintained safe therapeutic milieu, provided medication education as needed, monitored for change in behavior and Q15 minute checks, maintained therapeutic. Restraints/seclusion/emergency medication: N/A Justification of Continued Inpatient Treatment: Pt remains depressed with increased fatigue. Continued therapeutic support and medication management needed to provide stabilization, prevent decompensation, decreasing risk to patient and readmittance.
[2019-06-14 20:42] VITALS: BP 122/78
[2019-06-14] MEDS: mirtazapine 15mg tablet PO SCH (20:42)
--- NOTE | 2019-06-14 21:27 | NUR ---
Nursing Progress Note: Legal hold: JOSHUA DTS Report received from REYNA Guardado with use of SBAR Why are they here: Pt presented to ER due to suicidal ideation. Pt wanted to end her life by putting a plastic bag over her head to suffocate or overdose on pills. Pt recently had a medication change and the suicide thoughts have been overwhelming. Assessment What has happened this shift: Pt on bedside commode at start of shift. Transfer to wheelchair with minimal assist. Pt is doing better with transfers than earlier shifts. Pt said she is "feeling better" her affect is brighter tonight. Pt started on Adderall this am. Pt says this is making her feel better. Self propelled W/C to group room for husbands visit. Pleasant interactive visit with . Pt back to bed. Cooperative with care took all medications. S/I, H/I: Pt denies A/VH: Pt denies Sleep: 7hrs NOC and rested during the day ADL's: assist for transfers into w/c and onto commode, pt is wt bearing Group attendance: yes Were meds taken: Yes Any med S/E: tremors in hands, mouth movements Mental Status Exam Appearance: appropriate Eye contact: direct Behavior: Pleasant, cooperative Speech: Clear, normal rate and rhythm Mood: Depressed Affect: Brighter Thought process: Linear Thought Content: no delusion thought content expressed today Cognition: A&Ox4 Insight: Fair Judgment: Fair Interventions PRN's used: None Therapeutic interventions: 1:1 therapeutic assessment, provided active listening with positive feedback, maintained safe therapeutic milieu, provided medication education as needed, monitored for change in behavior and Q15 minute checks, maintained therapeutic. Restraints/seclusion/emergency medication: N/A Justification of Continued Inpatient Treatment: Pt remains depressed with increased fatigue. Continued therapeutic support and medication management needed to provide stabilization, prevent decompensation, decreasing risk to patient and readmittance.
[2019-06-15] MEDS ORDERED: dextroamphetamine/amphetamine 5mg tablet PO SCH (08:00)
[2019-06-15] MEDS: potassium chloride 10mEq ER tablet PO SCH (08:02)
[2019-06-15] MEDS: LORazepam 0.5 MG tablet PO SCH ×4 (08:03→21:06)
[2019-06-15] MEDS: multivitamins, therapeutics tablet PO SCH (08:03)
[2019-06-15] MEDS: dextroamphetamine/amphetamine 5mg tablet PO SCH (08:03)
[2019-06-15] MEDS: dabigatran 150mg capsule PO SCH ×2 (08:03→21:06)
[2019-06-15] MEDS: lactobacillus rhamnosus 10,000 MMU CELLS/CAPSULE PO SCH (08:03)
[2019-06-15] MEDS: metFORMIN 500mg tablet PO SCH ×2 (08:03→17:48)
[2019-06-15] MEDS: duloxetine 30mg CAPSULE.DR PO SCH ×2 (08:04→21:03)
[2019-06-15] MEDS: cephalexin 500mg capsule PO SCH ×4 (08:04→21:04)
[2019-06-15] MEDS: diltiazem CD 120mg capsule (once-daily) PO SCH (08:04)
[2019-06-15] MEDS: vitamin D (cholecalciferol) 1,000 unit tablet PO SCH (08:04)
[2019-06-15] MEDS: metoprolol tartrate 50mg tablet PO SCH ×2 (08:04→21:04)
[2019-06-15] MEDS: fluticasone nasal spray 16GM bottle NS SCH (08:05)
[2019-06-15] MEDS: OLANZapine 5mg rapidly disint. tablet PO SCH ×2 (08:05→21:05)
[2019-06-15] MEDS: loratadine 10mg tablet PO SCH (08:09)
[2019-06-15 08:32] VITALS: BP 132/82
--- NOTE | 2019-06-15 11:51 | NUR ---
Nursing Progress Note Legal hold: VOL, DTS Report received from REYNA Cortez with use of SBAR Why are they here: Pt presented to ER due to suicidal ideation. Pt wanted to end her life by putting a plastic bag over her head to suffocate or overdose on pills. Pt recently had a medication change and the suicide thoughts have been overwhelming. Assessment What has happened this shift: Patient sleeping at change of shift. Upon awakening for BGM, had urgency to urinate, she was able to urinate into bedside commode. Requests not getting up for breakfast or groups, states she is exhausted and wants to stay in bed. Encouraged pt. to attend meals and groups, for which she complied. Physical therapy was able to walk her approximately 22 feet, and get to her assist more with her transfers to bedside commode. Educated pt. that she had increase in stimulant and may start to make her feel more energetic. PT states that she may be semi-paraplegic, but after her thoracic surgery she was walking 600 feet, but has since declined in function. S/I, H/I: Pt denies A/VH: Pt denies Sleep: 7.5 hrs NOC and rested during the day ADL's: PT walked pt. and was able to successfully do 1 person transfer where she pulled down and up her own briefs and get up and down on her own. Group attendance: yes Were meds taken: Yes Any med S/E: tremors in hands, mouth movements Mental Status Exam Appearance: appropriate Eye contact: direct Behavior: Pleasant, cooperative Speech: Clear, normal rate and rhythm Mood: Depressed Affect: flat Thought process: Linear Thought Content: Being exhausted and not wanting to participate in unit activities. Cognition: A&Ox4 Insight: Fair Judgment: Fair Interventions PRN's used: None Therapeutic interventions: 1:1 therapeutic assessment, provided active listening with positive feedback, maintained safe therapeutic milieu, encouraged pt to become more independent in ADL's, provided medication education as needed, monitored for change in behavior and Q15 minute checks. Restraints/seclusion/emergency medication: N/A Justification of Continued Inpatient Treatment: Pt remains depressed with increased fatigue. Continued therapeutic, physical therapy support and medication management needed to provide stabilization, prevent decompensation, decreasing risk to patient and readmittance.
[2019-06-15] MEDS ORDERED: dextroamphetamine/amphetamine 10mg tablet PO ONE (14:30)
[2019-06-15] MEDS ORDERED: dextroamphetamine/amphetamine 5mg tablet PO ONE (14:40)
[2019-06-15 20:00] VITALS: BP 110/64
[2019-06-15] MEDS: mirtazapine 15mg tablet PO SCH (21:05)
--- NOTE | 2019-06-16 00:51 | NUR ---
Nursing Progress Note Legal hold: VOL, DTS Report received from REYNA Steele with use of SBAR Why are they here: Pt presented to ER due to suicidal ideation. Pt wanted to end her life by putting a plastic bag over her head to suffocate or overdose on pills. Pt recently had a medication change and the suicide thoughts have been overwhelming. Assessment What has happened this shift: Patient spends the beginning part of the evening visiting her . She then is escorted and helped into bed after visiting hours. She remains in bed wearing her nasal cannula with 2L o2. Patient reports depression as a 7/10 and denies SI. She states her visit with her was good, "But made me sad because he had to leave." Patient is tearful explaining it's hard to not be at home with her . Her evening CBG is 125. She is compliant with all her evening medications and reports that she will use the call light when she needs assistance getting up to the bedside commode this evening. S/I, H/I: Pt denies A/VH: Pt denies Sleep: See sleep assessment ADL's: PT walked pt. today and was able to successfully do 1 person transfer where she pulled down and up her own briefs and get up and down on her own. Encourage patient to help when she can. Group attendance: No groups this shift Were meds taken: Yes Any med S/E: Temors in hands, mouth movements Mental Status Exam Appearance: Appropriate Eye contact: Direct Behavior: Pleasant, cooperative Speech: Clear, normal rate and rhythm Mood: Depressed Affect: Flat Thought process: Linear Thought Content: Sad about not being at home with . Cognition: A&Ox4 Insight: Fair Judgment: Fair Interventions PRN's used: None Therapeutic interventions: 1:1 therapeutic assessment, provided active listening with positive feedback, maintained safe therapeutic milieu, encouraged pt to become more independent in ADL's, provided medication education as needed, monitored for change in behavior and Q15 minute checks. Restraints/seclusion/emergency medication: N/A Justification of Continued Inpatient Treatment: Pt remains depressed with increased fatigue. Continued therapeutic, physical therapy support and medication management needed to provide stabilization, prevent decompensation, decreasing risk to patient and readmittance.
[2019-06-16 07:30] VITALS: BP 122/75
[2019-06-16] MEDS: metFORMIN 500mg tablet PO SCH ×2 (07:51→17:41)
[2019-06-16] MEDS: lactobacillus rhamnosus 10,000 MMU CELLS/CAPSULE PO SCH (07:51)
[2019-06-16] MEDS: potassium chloride 10mEq ER tablet PO SCH (07:52)
[2019-06-16] MEDS: LORazepam 0.5 MG tablet PO SCH ×4 (07:52→21:04)
[2019-06-16] MEDS: diltiazem CD 120mg capsule (once-daily) PO SCH (07:53)
[2019-06-16] MEDS: loratadine 10mg tablet PO SCH (07:53)
[2019-06-16] MEDS: OLANZapine 5mg rapidly disint. tablet PO SCH ×2 (07:53→21:05)
[2019-06-16] MEDS: cephalexin 500mg capsule PO SCH ×4 (07:53→21:04)
[2019-06-16] MEDS: multivitamins, therapeutics tablet PO SCH (07:53)
[2019-06-16] MEDS: dextroamphetamine/amphetamine 5mg tablet PO SCH (07:54)
[2019-06-16] MEDS: duloxetine 30mg CAPSULE.DR PO SCH ×2 (07:54→20:56)
[2019-06-16] MEDS: dabigatran 150mg capsule PO SCH ×2 (07:55→21:17)
[2019-06-16] MEDS: metoprolol tartrate 50mg tablet PO SCH ×2 (07:55→20:00)
[2019-06-16] MEDS: fluticasone nasal spray 16GM bottle NS SCH (07:59)
[2019-06-16] MEDS: vitamin D (cholecalciferol) 1,000 unit tablet PO SCH (08:10)
[2019-06-16 09:14] VITALS: BP 122/75
[2019-06-16] MEDS: acetaminophen 325mg tablet PO PRN (11:00)
--- NOTE | 2019-06-16 17:50 | NUR ---
Nursing Progress Note Legal hold: VOL, DTS Report received from REYNA Cortez with use of SBAR Why are they here: Pt presented to ER due to suicidal ideation. Pt wanted to end her life by putting a plastic bag over her head to suffocate or overdose on pills. Pt recently had a medication change and the suicide thoughts have been overwhelming. Assessment What has happened this shift: Pt.sleeping at beginning of shift. Pt. took all medications and ate all meals. Pt. asked to sleep after breakfast. 1:1 done at bedside, pt. reports anxiety and depression rated 7/10. Pt. went to all groups and states, "I am trying to stay away". Pt. became tearful after group stating, "I'm afraid of the future... what will I do when my is not hear anymore... He is able to get to all the important papers, I can't." Pt. recieved bed bath. Pt. recieved physical therapy. Pt. on 2L O2 while in bed. Pt. placed on AM CBG checks. Pt.'s AM CBG check was 151. Pt. uses the [employer] 1 assist. Pt. napped in the afternoon. Pt. uses 2L O2 while she sleeps. S/I, H/I: Pt denies A/VH: Pt denies Sleep: 8.75 hrs ADL's: Pt. was 1 person assist in the AM, but became 2 person assist in afternoon as she became tired. PT treated pt. today (see PT note). Pt. was given bed bath today. Pt. transfers to commode with 1 person assist. Group attendance: Pt. attended groups. Were meds taken: Yes Any med S/E: Mild tremors in mouth and hands. Mental Status Exam Appearance: Appropriate Eye contact: Direct Behavior: Pleasant, cooperative Speech: Clear, normal rate and rhythm Mood: Depressed, becoming tearful at times. Affect: Flat Thought process: Linear Thought Content: Worried about future. Cognition: A&Ox3 Insight: Fair Judgment: Fair Interventions PRN's used: None Therapeutic interventions: 1:1 therapeutic assessment, provided active listening with positive feedback, maintained safe therapeutic milieu, encouraged pt to become more independent in ADL's, provided medication education as needed, monitored for change in behavior and Q15 minute checks. Restraints/seclusion/emergency medication: N/A Justification of Continued Inpatient Treatment: Pt remains depressed with increased fatigue. Continued therapeutic, physical therapy support and medication management needed to provide stabilization, prevent decompensation, decreasing risk to patient and readmittance.
[2019-06-16 20:00] VITALS: BP 90/68
[2019-06-16] MEDS: hydrOXYzine 25 MG tablet PO PRN (20:54)
[2019-06-16] MEDS: magnesium hydroxide 30ml (MOM) UD suspension PO PRN (20:54)
[2019-06-16] MEDS: mirtazapine 15mg tablet PO SCH (21:04)
--- NOTE | 2019-06-17 04:13 | NUR ---
Nursing Progress Note Legal hold: VOL, DTS Report received from REYNA Rodríguez with use of SBAR Why are they here: Pt presented to ER due to suicidal ideation. Pt wanted to end her life by putting a plastic bag over her head to suffocate or overdose on pills. Pt recently had a medication change and the suicide thoughts have been overwhelming. Assessment What has happened this shift: This patient was in community room at shift change. Patient tells this feature writer she napped a little on day shift. Patient states she feels like she is in a fog lately. "I'm hanging on for dear life, my depression and anxiety." Although depressed, this patients thought process is linear. She exhibits a flat affect. Patient can be distracted, she laughs and smiles on occasion. She brightens when her arrives and visits. The patient is up to commode with assist, walking around five feet with assist on each arm. She is medication compliant. She denies S/I or H/I. She denies hallucinations. This patient is advised that she is in a safe place. Q15 minute rounding is being done for patient safety. Patient sleeps on oxygen at 2 LPM as she is not CPAP compliant. SP02 is 98 percent while sleeping. Patient has awoken twice during the night to get up to commode. Once for water consumption. S/I, H/I: Pt denies A/VH: Pt denies Sleep: Will tabulate in am. ADL's: Patient is a two person assist to get to commode and back to bed. Patient uses wheelchair to go to community room. Group attendance: Pt. attended groups on day shift. Were meds taken: Patient is medication compliant. Any med S/E: Mild tremors in mouth and hands. Mental Status Exam Appearance: Appropriate Eye contact: Direct Behavior: Pleasant, cooperative Speech: Clear, normal rate and rhythm Mood: Depressed. Affect: Flat Thought process: Linear Thought Content: Worried about future. Cognition: A&Ox3 Insight: Fair Judgment: Fair Interventions PRN's used: None Therapeutic interventions: 1:1 therapeutic assessment, provided active listening with positive feedback, maintained safe therapeutic milieu, encouraged pt to become more independent in ADL's, provided medication education as needed, monitored for change in behavior and Q15 minute checks. Restraints/seclusion/emergency medication: N/A Justification of Continued Inpatient Treatment: Pt remains depressed with increased fatigue. Continued therapeutic, physical therapy support and medication management needed to provide stabilization, prevent decompensation, decreasing risk to patient and readmittance.
[2019-06-17] MEDS: cephalexin 500mg capsule PO SCH (07:48)
[2019-06-17] MEDS: potassium chloride 10mEq ER tablet PO SCH (07:48)
[2019-06-17] MEDS: metoprolol tartrate 50mg tablet PO SCH ×2 (07:48→21:15)
[2019-06-17] MEDS: loratadine 10mg tablet PO SCH (07:49)
[2019-06-17] MEDS: duloxetine 30mg CAPSULE.DR PO SCH ×2 (07:49→21:13)
[2019-06-17] MEDS: metFORMIN 500mg tablet PO SCH ×2 (07:50→17:13)
[2019-06-17] MEDS: diltiazem CD 120mg capsule (once-daily) PO SCH (07:50)
[2019-06-17] MEDS: lactobacillus rhamnosus 10,000 MMU CELLS/CAPSULE PO SCH (07:50)
[2019-06-17] MEDS: multivitamins, therapeutics tablet PO SCH (07:51)
[2019-06-17] MEDS: dextroamphetamine/amphetamine 5mg tablet PO SCH (07:51)
[2019-06-17] MEDS: LORazepam 0.5 MG tablet PO SCH ×4 (07:51→21:14)
[2019-06-17] MEDS: vitamin D (cholecalciferol) 1,000 unit tablet PO SCH (07:51)
[2019-06-17] MEDS: dabigatran 150mg capsule PO SCH ×2 (07:52→21:48)
[2019-06-17] MEDS: OLANZapine 5mg rapidly disint. tablet PO SCH ×2 (07:53→21:14)
[2019-06-17] MEDS: fluticasone nasal spray 16GM bottle NS SCH (07:58)
[2019-06-17 08:04] VITALS: BP 123/69
[2019-06-17] MEDS: magnesium hydroxide 30ml (MOM) UD suspension PO PRN (10:55)
--- NOTE | 2019-06-17 17:50 | NUR ---
Nursing Progress Note Legal hold: VOL, DTS Report received from REYNA Cortez with use of SBAR Why are they here: Pt presented to ER due to suicidal ideation. Pt wanted to end her life by putting a plastic bag over her head to suffocate or overdose on pills. Pt recently had a medication change and the suicide thoughts have been overwhelming. Assessment What has happened this shift: Pt. sleeping at start of shift. Pt. took medications and ate all meals. 1:1 done at bedside. Pt. continues to report anxiety and depression but states she feels slightly better today. Pt. Needs 2 person assist to commode and in and out of bed. Pt. needs much encouragement to stay out of bed. Pt. reporting hypersomnolence. Pt. seen by physical therapy today and did walking with 2 person assist. Pt. went to AM group but slept through afternoon group. Pt.'s AM CBG was 142. Pt. reports she was very tired after physical therapy today, but is hopeful to have energy for her 's visit tonight. Pt. started on Ducolox tablet for HS tonight. S/I, H/I: Pt denies A/VH: Pt denies Sleep: 8.75 hrs ADL's: Group attendance: Pt. attended groups. Were meds taken: Yes Any med S/E: Mild tremors in mouth and hands. Mental Status Exam Appearance: Appropriate Eye contact: Direct Behavior: Pleasant, cooperative Speech: Clear, normal rate and rhythm Mood: Depressed, becoming tearful at times. Affect: Flat Thought process: Linear Thought Content: Worried about future. Cognition: A&Ox3 Insight: Fair Judgment: Fair Interventions PRN's used: None Therapeutic interventions: 1:1 therapeutic assessment, provided active listening with positive feedback, maintained safe therapeutic milieu, encouraged pt to become more independent in ADL's, provided medication education as needed, monitored for change in behavior and Q15 minute checks. Restraints/seclusion/emergency medication: N/A Justification of Continued Inpatient Treatment: Pt remains depressed with increased fatigue. Continued therapeutic, physical therapy support and medication management needed to provide stabilization, prevent decompensation, decreasing risk to patient and readmittance.
[2019-06-17 20:00] VITALS: BP 115/64
[2019-06-17] MEDS: mirtazapine 15mg tablet PO SCH (21:12)
[2019-06-17] MEDS: bisacodyl 5mg tablet.DR PO PRN (21:14)
--- NOTE | 2019-06-18 01:56 | NUR ---
Nursing Progress Note Legal hold: VOL, DTS Report received from CAMILO Rodríguez with use of SBAR Why are they here: Pt presented to ER due to suicidal ideation. Pt wanted to end her life by putting a plastic bag over her head to suffocate or overdose on pills. Pt recently had a medication change and the suicide thoughts have been overwhelming. Assessment What has happened this shift: Patient in W/C in group room coloring at the beginning of shift. Pleasant, cooperative. C/O constipation. Took PRN bisacodyl PO. Appeared to enjoy visitation with her , smiling and holding conversation. Compliant with all medication. Using NC 2 lpm while sleeping. Using BSC for restroom needs. S/I, H/I: Pt denies A/VH: Pt denies Sleep: asleep at this time ADL's: staff assist. Group attendance: group room for visitation and snack Were meds taken: Yes Any med S/E: Mild tremors in mouth and hands. Mental Status Exam Appearance: Appropriate Eye contact: Direct Behavior: Pleasant, cooperative Speech: Clear, normal rate and rhythm Mood: "okay" Affect: Flat Thought process: Linear Thought Content: bowel movement Cognition: A&Ox3 Insight: Fair Judgment: Fair Interventions PRN's used: None Therapeutic interventions: 1:1 therapeutic assessment, provided active listening with positive feedback, maintained safe therapeutic milieu, encouraged pt to become more independent in ADL's, provided medication education as needed, monitored for change in behavior and Q15 minute checks. Restraints/seclusion/emergency medication: N/A Justification of Continued Inpatient Treatment: Pt remains depressed with increased fatigue. Continued therapeutic, physical therapy support and medication management needed to provide stabilization, prevent decompensation, decreasing risk to patient and readmittance.
[2019-06-18 07:30] VITALS: BP 116/80
[2019-06-18] MEDS: dextroamphetamine/amphetamine 5mg tablet PO SCH (08:01)
[2019-06-18] MEDS: vitamin D (cholecalciferol) 1,000 unit tablet PO SCH (08:02)
[2019-06-18] MEDS: metoprolol tartrate 50mg tablet PO SCH ×2 (08:04→20:19)
[2019-06-18] MEDS: multivitamins, therapeutics tablet PO SCH (08:05)
[2019-06-18] MEDS: metFORMIN 500mg tablet PO SCH ×2 (08:05→17:22)
[2019-06-18] MEDS: duloxetine 30mg CAPSULE.DR PO SCH ×2 (08:05→20:15)
[2019-06-18] MEDS: LORazepam 0.5 MG tablet PO SCH ×4 (08:06→20:16)
[2019-06-18] MEDS: loratadine 10mg tablet PO SCH (08:06)
[2019-06-18] MEDS: diltiazem CD 120mg capsule (once-daily) PO SCH (08:06)
[2019-06-18] MEDS: potassium chloride 10mEq ER tablet PO SCH (08:06)
[2019-06-18] MEDS: lactobacillus rhamnosus 10,000 MMU CELLS/CAPSULE PO SCH (08:07)
[2019-06-18] MEDS: dabigatran 150mg capsule PO SCH ×2 (08:07→20:13)
[2019-06-18] MEDS: fluticasone nasal spray 16GM bottle NS SCH (08:08)
[2019-06-18] MEDS: hydrOXYzine 25 MG tablet PO PRN (09:38)
--- NOTE | 2019-06-18 17:55 | NUR ---
Nursing Progress Note Legal hold: VOL, DTS Report received from REYNA Cortez with use of SBAR Why are they here: Pt presented to ER due to suicidal ideation. Pt wanted to end her life by putting a plastic bag over her head to suffocate or overdose on pills. Pt recently had a medication change and the suicide thoughts have been overwhelming. Assessment What has happened this shift: Pt. woken up for breakfast and medications. Pt. c/o of being tired. Pt. needs motivation to get out of bed. Pt. is entheustiastic about getting to group and doing PT. Pt. is a 2 person assist when toileting and getting in and out of bed. Pt. is pleasnt and cooperative but c/o of depression and anxeity rated 6/10 which she says is slightly improved. Pt. reports a good visit with her husaband last night and is looking forward to seeing him again. Pt. denies SI/HI, A/V H. Pt. in bed with 2L O2. Pt. reports anxiety r/t fears of losing , managing finances, etc. Pt. continues to report constipation and wants to wait to see if the ducolax will work before trying something stronger. PT treated pt. today and informed this RN there would be 1-2 sessions more and then nursing to take over walking pt. S/I, H/I: Pt denies A/VH: Pt denies Sleep: 7.75hrs ADL's: Group attendance: Pt. attended groups. Were meds taken: Yes Any med S/E: Mild tremors in mouth and hands. Mental Status Exam Appearance: Appropriate Eye contact: Direct Behavior: Pleasant, cooperative Speech: Clear, normal rate and rhythm Mood: Depressed but reports feeling slightly better Affect: Flat Thought process: Linear Thought Content: Worried about future. Cognition: A&Ox4 Insight: Fair Judgment: Fair Interventions PRN's used: None Therapeutic interventions: 1:1 therapeutic assessment, provided active listening with positive feedback, maintained safe therapeutic milieu, encouraged pt to become more independent in ADL's, provided medication education as needed, monitored for change in behavior and Q15 minute checks. Restraints/seclusion/emergency medication: N/A Justification of Continued Inpatient Treatment: Pt remains depressed with increased fatigue. Continued therapeutic, physical therapy support and medication management needed to provide stabilization, prevent decompensation, decreasing risk to patient and readmittance.
[2019-06-18 19:41] VITALS: BP 106/68
[2019-06-18] MEDS: bisacodyl 5mg tablet.DR PO PRN (20:16)
[2019-06-18] MEDS: OLANZapine 5mg rapidly disint. tablet PO SCH (20:16)
[2019-06-18] MEDS: mirtazapine 15mg tablet PO SCH (20:17)
--- NOTE | 2019-06-19 04:04 | NUR ---
Nursing Progress Note Legal hold: VOL, DTS Report received from CAMILO Rodríguez with use of SBAR Why are they here: Pt presented to ER due to suicidal ideation. Pt wanted to end her life by putting a plastic bag over her head to suffocate or overdose on pills. Pt recently had a medication change and the suicide thoughts have been overwhelming. Assessment What has happened this shift: Patient in W/C in group room waiting for visitations. Pleasant, cooperative. Continues to C/O constipation. Took PRN bisacodyl PO and continues to drink water. Appeared to enjoy visitation with her , smiling and holding conversation. Compliant with all medication. Using NC 2 lpm while sleeping. Using BSC for restroom needs with one incontinent episode. Patient continuously apologized for incontinent episode, staff reassured her and patient went back to bed shortly. S/I, H/I: Pt denies A/VH: Pt denies Sleep: asleep at this time ADL's: staff assist. Group attendance: group room for visitation and snack Were meds taken: Yes Any med S/E: Mild tremors in mouth and hands. Mental Status Exam Appearance: Appropriate Eye contact: Direct Behavior: Pleasant, cooperative Speech: Clear, normal rate and rhythm Mood: "okay" Affect: Flat Thought process: Linear Thought Content: bowel movement Cognition: A&Ox3 Insight: Fair Judgment: Fair Interventions PRN's used: None Therapeutic interventions: 1:1 therapeutic assessment, provided active listening with positive feedback, maintained safe therapeutic milieu, encouraged pt to become more independent in ADL's, provided medication education as needed, monitored for change in behavior and Q15 minute checks. Restraints/seclusion/emergency medication: N/A Justification of Continued Inpatient Treatment: Pt remains depressed with increased fatigue. Continued therapeutic, physical therapy support and medication management needed to provide stabilization, prevent decompensation, decreasing risk to patient and readmittance.
[2019-06-19] MEDS: fluticasone nasal spray 16GM bottle NS SCH (07:36)
[2019-06-19] MEDS: potassium chloride 10mEq ER tablet PO SCH (07:37)
[2019-06-19] MEDS: LORazepam 0.5 MG tablet PO SCH ×4 (07:37→21:06)
[2019-06-19] MEDS: dextroamphetamine/amphetamine 5mg tablet PO SCH (07:37)
[2019-06-19] MEDS: vitamin D (cholecalciferol) 1,000 unit tablet PO SCH (07:38)
[2019-06-19] MEDS: metoprolol tartrate 50mg tablet PO SCH ×2 (07:39→21:05)
[2019-06-19] MEDS: duloxetine 30mg CAPSULE.DR PO SCH ×2 (07:39→21:05)
[2019-06-19] MEDS: lactobacillus rhamnosus 10,000 MMU CELLS/CAPSULE PO SCH (07:39)
[2019-06-19] MEDS: dabigatran 150mg capsule PO SCH ×2 (07:39→21:05)
[2019-06-19] MEDS: loratadine 10mg tablet PO SCH (07:39)
[2019-06-19] MEDS: metFORMIN 500mg tablet PO SCH ×2 (07:40→17:31)
[2019-06-19] MEDS: multivitamins, therapeutics tablet PO SCH (07:40)
[2019-06-19] MEDS: diltiazem CD 120mg capsule (once-daily) PO SCH (07:40)
[2019-06-19 08:47] VITALS: BP 117/73
[2019-06-19] MEDS: magnesium hydroxide 30ml (MOM) UD suspension PO PRN (09:03)
[2019-06-19] MEDS ORDERED: magnesium citrate 296ml oral solution PO ONE (11:50)
[2019-06-19] MEDS ORDERED: NYSTATIN CREAM - 30GM TUBE TP ONE (12:20)
--- NOTE | 2019-06-19 16:43 | NUR ---
Nursing Progress Note Legal hold: VOL, DTS Report received from Jacquelin Howard RN with use of SBAR Why are they here: Pt presented to ER due to suicidal ideation. Pt wanted to end her life by putting a plastic bag over her head to suffocate or overdose on pills. Pt recently had a medication change and the suicide thoughts have been overwhelming. Assessment What has happened this shift: Patient is observed sleeping at change of shift. Prior to breakfast she is given a bedbath, redness observed in perineal area and patient c/o itching. She takes her medications without issue. She states that she has not had a BM is 4 days, MOM administered and prune juice provided. Consult with Dr George, order recieved for nystatin cream and mag citrate. Requested dietary add Power Pudding to each meal tray. Patient states that she feels sad today and discusses that her youngest brother, who she helped raised, had his memorial service last night. She was not able to attend. RN allowed patient the time she needed to discuss her feelings. Patient does well transfering to wheelchair and commode with use of walker. She wheels herself to and back from the group room after groups and meals. *1248 BS 157 S/I, H/I: none reported A/VH: none reported Sleep: 6.75hrs NOC and rested during the day ADL's: needs assitance, bed bath done today, patient brushed teeth/hair independantly Group attendance: Pt. attended AM group. Were meds taken: Yes Any med S/E: Mild tremors in mouth and hands. Mental Status Exam Appearance: Appropriate Eye contact: Direct Behavior: Pleasant, cooperative, sad Speech: clear, soft tone, normal rate and rhythm Mood: sad Affect: congruent to mood, tearful Thought process: Linear Thought Content: loss of brother Cognition: A&Ox4 Insight: Fair Judgment: Fair Interventions PRN's used: MOM for constipation Therapeutic interventions: 1:1 therapeutic assessment, provided active listening with positive feedback, maintained safe therapeutic milieu, encouraged pt to become more independent in ADL's, provided medication education as needed, monitored for change in behavior and Q15 minute checks. Restraints/seclusion/emergency medication: N/A Justification of Continued Inpatient Treatment: Pt remains depressed with increased fatigue. Continued therapeutic, physical therapy support and medication management needed to provide stabilization, prevent decompensation, decreasing risk to patient and readmittance.
[2019-06-19 19:55] VITALS: BP 107/70
[2019-06-19] MEDS ORDERED: NYSTATIN CREAM - 30GM TUBE TP SCH (20:00)
[2019-06-19] MEDS: mirtazapine 15mg tablet PO SCH (21:04)
[2019-06-19] MEDS: OLANZapine 5mg rapidly disint. tablet PO SCH (21:06)
--- NOTE | 2019-06-20 01:07 | NUR ---
Nursing Progress Note Legal hold: VOL, DTS Report received from CAMILO Rodríguez with use of SBAR Why are they here: Pt presented to ER due to suicidal ideation. Pt wanted to end her life by putting a plastic bag over her head to suffocate or overdose on pills. Pt recently had a medication change and the suicide thoughts have been overwhelming. Assessment What has happened this shift: The patient was seen in her room after her left from visit. She reports that her depression is a little better, as is anxiety. She states that she's not constipated anymore, due to Mag Citrate. She says that she's embarrassed about incontinence, and apologizes, but is reassured not to be embarrassed, it's not her fault. The patient continues to use 2L O2 while sleeping per n/c. She took her HS meds then went to sleep S/I, H/I: Denies A/VH: Denies Sleep: asleep at this time ADL's: staff assist. Group attendance: No groups at night. Were meds taken: Yes Any med S/E: Mild tremors in mouth and hands. Mental Status Exam Appearance: Appropriate, wearing green scrubs. Eye contact: Direct Behavior: Pleasant, cooperative Speech: Clear, normal rate and rhythm Mood: "Pretty good." Affect: blunted. Thought process: Linear Thought Content: Embarrassed about incontinence. Cognition: A&Ox3 Insight: Fair Judgment: Fair Interventions PRN's used: None Therapeutic interventions: 1:1 therapeutic assessment, provided active listening with positive feedback, maintained safe therapeutic milieu, encouraged pt to become more independent in ADL's, provided medication education as needed, monitored for change in behavior and Q15 minute checks. Restraints/seclusion/emergency medication: N/A Justification of Continued Inpatient Treatment: Pt remains depressed with increased fatigue. Continued therapeutic, physical therapy support and medication management needed to provide stabilization, prevent decompensation, decreasing risk to patient and readmittance.
[2019-06-20 07:30] VITALS: BP 131/77
[2019-06-20] MEDS: dabigatran 150mg capsule PO SCH ×2 (07:51→20:40)
[2019-06-20] MEDS: lactobacillus rhamnosus 10,000 MMU CELLS/CAPSULE PO SCH (07:52)
[2019-06-20] MEDS: vitamin D (cholecalciferol) 1,000 unit tablet PO SCH (07:53)
[2019-06-20] MEDS: LORazepam 0.5 MG tablet PO SCH ×4 (07:53→20:40)
[2019-06-20] MEDS: metoprolol tartrate 50mg tablet PO SCH ×2 (07:53→20:42)
[2019-06-20] MEDS: diltiazem CD 120mg capsule (once-daily) PO SCH (07:53)
[2019-06-20] MEDS: dextroamphetamine/amphetamine 5mg tablet PO SCH (07:54)
[2019-06-20] MEDS: loratadine 10mg tablet PO SCH (07:55)
[2019-06-20] MEDS: multivitamins, therapeutics tablet PO SCH (07:55)
[2019-06-20] MEDS: metFORMIN 500mg tablet PO SCH ×2 (07:55→17:42)
[2019-06-20] MEDS: duloxetine 30mg CAPSULE.DR PO SCH ×2 (07:56→20:39)
[2019-06-20] MEDS: fluticasone nasal spray 16GM bottle NS SCH (07:56)
[2019-06-20] MEDS: potassium chloride 10mEq ER tablet PO SCH ×2 (08:12→09:07)
[2019-06-20] MEDS: hydrOXYzine 25 MG tablet PO PRN (15:25)
[2019-06-20] MEDS: nystatin 15 GM powder TP SCH ×2 (15:25→20:40)
--- NOTE | 2019-06-20 17:50 | NUR ---
Nursing Progress Note Legal hold: VOL, DTS Report received from REYNA Cortez with use of SBAR Why are they here: Pt presented to ER due to suicidal ideation. Pt wanted to end her life by putting a plastic bag over her head to suffocate or overdose on pills. Pt recently had a medication change and the suicide thoughts have been overwhelming. Assessment What has happened this shift: Pt. awake at beginning of shift. Pt.'s AM CBG was 162. Pt. reports feeling a mix of emotions this morning, like she wants to cry, is feeling jittery inside, and wants to sleep, pt. reports this feeling throughout the day. Pt. denies SI/HI, but reports feelings of depression and anxeity. PT. given Atarax in the afternoon for feeling of anxiety. Pt. is 2 person assist as pt. c/o increased weakness/tiredness, anxiety this afternoon. Pt. showered today. Pt. attended all groups. S/I, H/I: Pt denies A/VH: Pt denies Sleep: 8 hrs ADL's: Needs assistance. Pt. showered today. Group attendance: Pt. attended groups. Were meds taken: Yes Any med S/E: Mild tremors in mouth and hands. Mental Status Exam Appearance: Appropriate Eye contact: Direct Behavior: Pleasant, cooperative Speech: Clear, normal rate and rhythm Mood: Depressed but reports feeling slightly better Affect: Flat Thought process: Linear Thought Content: Anxious about her . Cognition: A&Ox4 Insight: Fair Judgment: Fair Interventions PRN's used: Atarax Therapeutic interventions: 1:1 therapeutic assessment, provided active listening with positive feedback, maintained safe therapeutic milieu, encouraged pt to become more independent in ADL's, provided medication education as needed, monitored for change in behavior and Q15 minute checks. Restraints/seclusion/emergency medication: N/A Justification of Continued Inpatient Treatment: Pt remains depressed with increased fatigue. Continued therapeutic, physical therapy support and medication management needed to provide stabilization, prevent decompensation, decreasing risk to patient and readmittance.
[2019-06-20 20:00] VITALS: BP_SYST 107; BP_SYST 130; BP_DIAS 69; BP_DIAS 70
[2019-06-20] MEDS: mirtazapine 15mg tablet PO SCH (20:40)
[2019-06-20] MEDS: OLANZapine 5mg rapidly disint. tablet PO SCH (20:42)
[2019-06-20] MEDS: mag hydrox/Alum hydrox/simeth 30ml oral suspension PO PRN (21:32)
--- NOTE | 2019-06-21 01:50 | NUR ---
Nursing Progress Note Legal hold: VOL, DTS Report received from CAMILO Rodríguez with use of SBAR Why are they here: Pt presented to ER due to suicidal ideation. Pt wanted to end her life by putting a plastic bag over her head to suffocate or overdose on pills. Pt recently had a medication change and the suicide thoughts have been overwhelming. Assessment: What has happened this shift: The patient was seen in her room at bedside for 1:1. She had a visit from her , then went back to bed. She continues to report depression, but states that SI is a little better. She says that she overheard a conversation, and is now worried about end of life issues that she needs to discuss with her . The patient c/o feeling emotional today, and just feels like sleeping. She is compliant with medications, and went to sleep after HS med pass. S/I, H/I: Denies A/VH: Denies Sleep: asleep at this time ADL's: Requires staff assist. Group attendance: No groups at night. Were meds taken: Yes Any med S/E: Mild tremors in mouth and hands. Mental Status Exam: Appearance: Appropriate, wearing green scrubs. Eye contact: Direct Behavior: Pleasant, cooperative, sleepy Speech: Clear, normal rate and rhythm Mood: "Sad." Affect: Blunted. Thought process: Linear, goal oriented. Thought Content: Embarrassed about incontinence. Cognition: A&Ox3 Insight: Fair Judgment: Fair Interventions: PRN's used: None Therapeutic interventions: 1:1 therapeutic assessment, provided active listening with positive feedback, maintained safe therapeutic milieu, encouraged pt to become more independent in ADL's, provided medication education as needed, monitored for change in behavior and Q15 minute checks. Restraints/seclusion/emergency medication: N/A Justification of Continued Inpatient Treatment: Pt remains depressed with increased fatigue. Continued therapeutic, physical therapy support and medication management needed to provide stabilization, prevent decompensation, decreasing risk to patient and readmittance.
[2019-06-21 08:00] VITALS: BP 118/79
[2019-06-21] MEDS: LORazepam 0.5 MG tablet PO SCH ×4 (08:03→21:29)
[2019-06-21] MEDS: multivitamins, therapeutics tablet PO SCH (08:04)
[2019-06-21] MEDS: potassium chloride 10mEq ER tablet PO SCH (08:05)
[2019-06-21] MEDS: diltiazem CD 120mg capsule (once-daily) PO SCH (08:05)
[2019-06-21] MEDS: dextroamphetamine/amphetamine 5mg tablet PO SCH (08:05)
[2019-06-21] MEDS: loratadine 10mg tablet PO SCH (08:06)
[2019-06-21] MEDS: vitamin D (cholecalciferol) 1,000 unit tablet PO SCH (08:06)
[2019-06-21] MEDS: duloxetine 30mg CAPSULE.DR PO SCH ×2 (08:06→21:28)
[2019-06-21] MEDS: metFORMIN 500mg tablet PO SCH ×2 (08:07→17:50)
[2019-06-21] MEDS: metoprolol tartrate 50mg tablet PO SCH ×2 (08:08→21:28)
[2019-06-21] MEDS: lactobacillus rhamnosus 10,000 MMU CELLS/CAPSULE PO SCH (08:10)
[2019-06-21] MEDS: dabigatran 150mg capsule PO SCH ×2 (08:42→21:28)
[2019-06-21] MEDS: fluticasone nasal spray 16GM bottle NS SCH (08:42)
[2019-06-21] MEDS: nystatin 15 GM powder TP SCH ×2 (08:42→20:00)
[2019-06-21] MEDS: mag hydrox/Alum hydrox/simeth 30ml oral suspension PO PRN ×2 (09:24→22:19)
--- NOTE | 2019-06-21 11:34 | NUR ---
reassessment: Pt PO increased to 100% meals meeting needs. LBM 06/19 documented as constipated/incontinent but no constipation per RN today receiving power pudding. No nutrition concerns at this time. Will continue to monitor. Rec: 1. continue carb controlled diet 2. wt per rx Addendum: 06/21/19 at [address] Amended: Links added.
--- NOTE | 2019-06-21 17:42 | NUR ---
Nursing Progress Note Legal hold: VOL, DTS Report received from REYNA George with use of SBAR Why are they here: Pt presented to ER due to suicidal ideation. Pt wanted to end her life by putting a plastic bag over her head to suffocate or overdose on pills. Pt recently had a medication change and the suicide thoughts have been overwhelming. Assessment What has happened this shift: Pt. sleeping at start of shift. AM CBG was 137. Pt. ate all meals in community room and took all medications. Pt. up majority of the day in community room and participated in all groups. Pt. took 1.5 hr nap in afternoon. Pt. walked in morning with staff about 20 feet with 2 breaks. In afternoon pt. walked with PT about 80ft with 2 breaks. Physical therapy informed this RN that they are passing of services for RNs to do with pt. Instructions are to walk pt twice a day. Pt. is 1 person assist with encouragement. 1:1 done at bedside, pt. reports depression rated 7/10. Pt. reports her anxiety is slightly improved and does not feel as tired. Pt. continues to report anxiety regarding the future, especially fearing her husbands as is in control of all important documents. S/I, H/I: Pt denies A/VH: Pt denies Sleep: 12.75 hrs ADL's: Needs assistance. Group attendance: Pt. attended groups. Were meds taken: Yes Any med S/E: Mild tremors in mouth and hands. Mental Status Exam Appearance: clean in green gown. Eye contact: Direct Behavior: Pleasant, cooperative Speech: Clear, normal rate and rhythm Mood: Depressed but reports feeling less anxious Affect: Flat Thought process: Linear Thought Content: Anxious about her . Cognition: A&Ox4 Insight: Fair Judgment: Fair Interventions PRN's used: Therapeutic interventions: 1:1 therapeutic assessment, provided active listening with positive feedback, maintained safe therapeutic milieu, encouraged pt to become more independent in ADL's, provided medication education as needed, monitored for change in behavior and Q15 minute checks. Restraints/seclusion/emergency medication: N/A Justification of Continued Inpatient Treatment: Pt remains depressed with increased fatigue. Continued therapeutic, physical therapy support and medication management needed to provide stabilization, prevent decompensation, decreasing risk to patient and readmittance.
[2019-06-21 20:00] VITALS: BP 116/62
[2019-06-21] MEDS: mirtazapine 15mg tablet PO SCH (21:29)
[2019-06-21] MEDS: OLANZapine 5mg rapidly disint. tablet PO SCH (21:29)
--- NOTE | 2019-06-21 22:25 | NUR ---
Nursing Progress Note Legal hold: VOL, DTS Report received from REYNA Milton with use of SBAR Why are they here: Pt presented to ER due to suicidal ideation. Pt wanted to end her life by putting a plastic bag over her head to suffocate or overdose on pills. Pt recently had a medication change and the suicide thoughts have been overwhelming. Assessment: What has happened this shift: The patient was seen in her room at bedside for 1:1. She reports that she had a good and bad day. It's good that she and her were able to talk to DR. Campos, but bad that she still has same worries. "I'm a worrier, and always worrying about end of life issues. I'm worried that my will before me, and I'll have to deal with everything by myself." The patient says they never had children, so there is no family that can step in and help. "My has always taken care of the bills and everything." The patient believes she still needs more input from MD, and more conversation with her . The patient spent all evening in her room, took her HS meds, then went to sleep. S/I, H/I: Denies A/VH: Denies Sleep: asleep at this time ADL's: Requires staff assist. Group attendance: No groups at night. Were meds taken: Yes Any med S/E: Mild tremors in mouth and hands. Mental Status Exam: Appearance: Appropriate, wearing green scrubs. Eye contact: Direct Behavior: Pleasant, cooperative, anxious. Speech: Clear, normal rate and rhythm Mood: "Better." Affect: Blunted. Thought process: Linear, goal oriented. Thought Content: Worried about end of life issues. Cognition: A&Ox3 Insight: Fair Judgment: Fair Interventions: PRN's used: Maalox for "heartburn" Therapeutic interventions: 1:1 therapeutic assessment, provided active listening with positive feedback, maintained safe therapeutic milieu, encouraged pt to become more independent in ADL's, provided medication education as needed, monitored for change in behavior and Q15 minute checks. Restraints/seclusion/emergency medication: N/A Justification of Continued Inpatient Treatment: Pt remains depressed with increased fatigue. Continued therapeutic, physical therapy support and medication management needed to provide stabilization, prevent decompensation, decreasing risk to patient and readmittance.
[2019-06-22] MEDS: lactobacillus rhamnosus 10,000 MMU CELLS/CAPSULE PO SCH (07:50)
[2019-06-22] MEDS: metoprolol tartrate 50mg tablet PO SCH ×2 (07:52→20:21)
[2019-06-22] MEDS: duloxetine 30mg CAPSULE.DR PO SCH ×2 (07:52→20:22)
[2019-06-22] MEDS: multivitamins, therapeutics tablet PO SCH (07:53)
[2019-06-22] MEDS: metFORMIN 500mg tablet PO SCH ×2 (07:53→17:45)
[2019-06-22] MEDS: dabigatran 150mg capsule PO SCH ×2 (07:53→20:20)
[2019-06-22] MEDS: potassium chloride 10mEq ER tablet PO SCH (07:54)
[2019-06-22] MEDS: LORazepam 0.5 MG tablet PO SCH ×4 (07:54→20:22)
[2019-06-22] MEDS: diltiazem CD 120mg capsule (once-daily) PO SCH (07:54)
[2019-06-22] MEDS: fluticasone nasal spray 16GM bottle NS SCH (07:56)
[2019-06-22 08:00] VITALS: BP 109/65
[2019-06-22] MEDS: loratadine 10mg tablet PO SCH (08:22)
[2019-06-22] MEDS: dextroamphetamine/amphetamine 5mg tablet PO SCH (09:05)
[2019-06-22] MEDS: nystatin 15 GM powder TP SCH ×2 (11:20→20:55)
[2019-06-22] MEDS: vitamin D (cholecalciferol) 1,000 unit tablet PO SCH (11:44)
--- NOTE | 2019-06-22 17:50 | NUR ---
Nursing Progress Note Legal hold: VOL, DTS Report received from REYNA George with use of SBAR Why are they here: Pt presented to ER due to suicidal ideation. Pt wanted to end her life by putting a plastic bag over her head to suffocate or overdose on pills. Pt recently had a medication change and the suicide thoughts have been overwhelming. Assessment What has happened this shift: Pt. sleeping at start of shift with 2L O2 per NC. Pt.'s AM CBG was 138. Pt. is calm and cooperative, taking medications and eating meals in day room. Pt. interacts with peers and staff appropriately. Pt. reports feeling depression and anxiety due to controlling all important documentation and feeling like if he she would be unable to find it all. Pt. denies SI/HI, A/V H. Pt. walked this AM from community room to bedroom with x3 breaks with wheel chair. Pt. reports feeling stronger. Pt. up to commode with x1 assist. Pt. attends all groups. Pt. reports anxiety and depression 05/02. S/I, H/I: Pt denies A/VH: Pt denies Sleep: 8.25 hrs with naps ADL's: Needs assistance. Group attendance: Pt. attended groups. Were meds taken: Yes Any med S/E: Mild tremors in mouth and hands. Mental Status Exam Appearance: clean in green gown. Eye contact: Direct Behavior: Pleasant, cooperative Speech: Clear, normal rate and rhythm Mood: Depressed but reports feeling less anxious Affect: Flat Thought process: Linear Thought Content: Anxious about not addressing her concerns. Cognition: A&Ox4 Insight: Fair Judgment: Fair Interventions PRN's used: Therapeutic interventions: 1:1 therapeutic assessment, provided active listening with positive feedback, maintained safe therapeutic milieu, encouraged pt to become more independent in ADL's, provided medication education as needed, monitored for change in behavior and Q15 minute checks. Restraints/seclusion/emergency medication: N/A Justification of Continued Inpatient Treatment: Pt remains depressed with increased fatigue. Continued therapeutic, physical therapy support and medication management needed to provide stabilization, prevent decompensation, decreasing risk to patient and readmittance.
[2019-06-22 19:41] VITALS: BP 112/64
[2019-06-22] MEDS: OLANZapine 5mg rapidly disint. tablet PO SCH (20:22)
[2019-06-22] MEDS: mirtazapine 15mg tablet PO SCH (20:23)
--- NOTE | 2019-06-23 01:34 | NUR ---
Nursing Progress Note Legal hold: VOL, DTS Report received from CAMILO Ortiz with use of SBAR Why are they here: Pt presented to ER due to suicidal ideation. Pt wanted to end her life by putting a plastic bag over her head to suffocate or overdose on pills. Pt recently had a medication change and the suicide thoughts have been overwhelming. Assessment What has happened this shift: Patient up in WC at the beginning of shift. Conversing with peers in the group room while waiting for to visit. Patient continues to c/o constipation but normalizes it by stating she has IBS "and it's always going to be this way." Patient compliant with all medication and physical assessment. Continues to transfer with 1 person assist without complication. After visiting patient went to bed shortly after. S/I, H/I: Pt denies A/VH: Pt denies Sleep: asleep at this time ADL's: one person assist Group attendance: group room for snack. Were meds taken: Yes Any med S/E: Mild tremors in mouth and hands. Mental Status Exam Appearance: clean in hospital gown, hair brushed. Eye contact: Direct Behavior: Pleasant, cooperative Speech: Clear, normal rate and rhythm Mood: Depressed but reports feeling less anxious Affect: Flat Thought process: Linear Thought Content: Anxious about not addressing her concerns. Cognition: A&Ox4 Insight: Fair Judgment: Fair Interventions PRN's used: none Therapeutic interventions: 1:1 therapeutic assessment, provided active listening with positive feedback, maintained safe therapeutic milieu, encouraged pt to become more independent in ADL's, provided medication education as needed, monitored for change in behavior and Q15 minute checks. Restraints/seclusion/emergency medication: N/A Justification of Continued Inpatient Treatment: Pt remains depressed with increased fatigue. Continued therapeutic, physical therapy support and medication management needed to provide stabilization, prevent decompensation, decreasing risk to patient and readmittance.
[2019-06-23] MEDS: metoprolol tartrate 50mg tablet PO SCH ×2 (07:46→20:43)
[2019-06-23] MEDS: vitamin D (cholecalciferol) 1,000 unit tablet PO SCH (07:46)
[2019-06-23] MEDS: dextroamphetamine/amphetamine 5mg tablet PO SCH (07:46)
[2019-06-23] MEDS: pantoprazole 40mg Tablet.DR PO SCH (07:46)
[2019-06-23] MEDS: multivitamins, therapeutics tablet PO SCH (07:47)
[2019-06-23] MEDS: dabigatran 150mg capsule PO SCH ×2 (07:47→20:41)
[2019-06-23] MEDS: diltiazem CD 120mg capsule (once-daily) PO SCH (07:47)
[2019-06-23] MEDS: metFORMIN 500mg tablet PO SCH ×2 (07:47→17:46)
[2019-06-23] MEDS: LORazepam 0.5 MG tablet PO SCH ×4 (07:47→21:00)
[2019-06-23] MEDS: lactobacillus rhamnosus 10,000 MMU CELLS/CAPSULE PO SCH (07:47)
[2019-06-23] MEDS: potassium chloride 10mEq ER tablet PO SCH (07:47)
[2019-06-23] MEDS: duloxetine 30mg CAPSULE.DR PO SCH ×2 (07:47→20:44)
[2019-06-23] MEDS: fluticasone nasal spray 16GM bottle NS SCH (07:47)
[2019-06-23] MEDS: loratadine 10mg tablet PO SCH (07:47)
[2019-06-23 07:50] VITALS: BP 125/81
[2019-06-23] MEDS: nystatin 15 GM powder TP SCH ×2 (08:00→20:45)
--- NOTE | 2019-06-23 11:31 | NUR ---
Nursing Progress Note Legal hold: VOL, DTS Report received from REYNA Dennis with use of SBAR Why are they here: Pt presented to ER due to suicidal ideation. Pt wanted to end her life by putting a plastic bag over her head to suffocate or overdose on pills. Pt recently had a medication change and the suicide thoughts have been overwhelming. Assessment What has happened this shift: Patient awoke for a.m. meds and BGM. Patient states that she feels panicked about being discharged. Reports feeling like there is a dark cloud over here, "everything is gloom and doom". States that she has concerns that she will not be able to function, as patient has been walking with assistance 2-3 times per day. She is also concerned that her depression will get worse when she is home. Sat with her and did some deep breathing techniques. Patient was able to ambulate approximately 40 feet with 4 rests in between. Patient is attending all groups, meals. S/I, H/I: Pt denies A/VH: Pt denies Sleep: 8.0 hrs NOC with naps in daytime. ADL's: Needs assistance. Group attendance: Pt. attended groups. Were meds taken: Yes Any med S/E: Mild tremors in mouth and hands. Mental Status Exam Appearance: clean in green gown. Eye contact: Direct Behavior: Pleasant, cooperative Speech: Clear, normal rate and rhythm Mood: Depressed, anxious Affect: Flat Thought process: Linear Thought Content: Anxious about discharge. Cognition: A&Ox4 Insight: Fair Judgment: Fair Interventions PRN's used: Therapeutic interventions: 1:1 therapeutic assessment, provided active listening with positive feedback, maintained safe therapeutic milieu, encouraged pt to become more independent in ADL's, ambulated hallways with patient. provided medication education as needed, monitored for change in behavior and Q15 minute checks. Restraints/seclusion/emergency medication: N/A Justification of Continued Inpatient Treatment: Pt remains depressed with increased fatigue. Continued therapeutic, physical therapy support and medication management needed to provide stabilization, prevent decompensation, decreasing risk to patient and readmittance.
[2019-06-23] MEDS ORDERED: magnesium citrate 296ml oral solution PO ONE (16:40)
[2019-06-23 20:00] VITALS: BP 102/67
[2019-06-23] MEDS: OLANZapine 5mg rapidly disint. tablet PO SCH (20:41)
[2019-06-23] MEDS: mirtazapine 15mg tablet PO SCH (20:43)
--- NOTE | 2019-06-23 23:23 | NUR ---
Nursing Progress Note Legal hold: VOL, DTS Report received from CAMILO Ortiz with use of SBAR Why are they here: Pt presented to ER due to suicidal ideation. Pt wanted to end her life by putting a plastic bag over her head to suffocate or overdose on pills. Pt recently had a medication change and the suicide thoughts have been overwhelming. Assessment What has happened this shift: Patient up in WC socializing with peers in the group room while waiting for to visit. Patient continues to c/o constipation but doesn't want to start mag citrate until tomorrow (06/24) bowel sound WNL and abdomen soft. Patient compliant with all medication and physical assessment. Continues to transfer with 1 person assist without complication. Switched bedrooms and apears happy with the change as she commented on the "spectacular view" and when asked if she is happy with the change she states that she is. Patient went to sleep shortly after medications. S/I, H/I: Pt denies A/VH: Pt denies Sleep: asleep at this time ADL's: one person assist Group attendance: group room for snack. Were meds taken: Yes Any med S/E: Mild tremors in mouth and hands. Mental Status Exam Appearance: clean in hospital gown, hair neat. Eye contact: Direct Behavior: Pleasant, cooperative Speech: Clear, normal rate and rhythm Mood: Depressed Affect: Flat Thought process: Linear Thought Content: In agreement with the doctor about making sure she is feeling better before discharging the unit. Cognition: A&Ox4 Insight: Fair Judgment: Fair Interventions PRN's used: none Therapeutic interventions: 1:1 therapeutic assessment, provided active listening with positive feedback, maintained safe therapeutic milieu, encouraged pt to become more independent in ADL's, provided medication education as needed, monitored for change in behavior and Q15 minute checks. Restraints/seclusion/emergency medication: N/A Justification of Continued Inpatient Treatment: Pt remains depressed with increased fatigue. Continued therapeutic, physical therapy support and medication management needed to provide stabilization, prevent decompensation, decreasing risk to patient and readmittance.
[2019-06-24] MEDS: diltiazem CD 120mg capsule (once-daily) PO SCH (07:50)
[2019-06-24] MEDS: dabigatran 150mg capsule PO SCH ×2 (07:50→20:45)
[2019-06-24] MEDS: potassium chloride 10mEq ER tablet PO SCH (07:50)
[2019-06-24] MEDS: lactobacillus rhamnosus 10,000 MMU CELLS/CAPSULE PO SCH (07:50)
[2019-06-24] MEDS: vitamin D (cholecalciferol) 1,000 unit tablet PO SCH (07:51)
[2019-06-24] MEDS: pantoprazole 40mg Tablet.DR PO SCH (07:51)
[2019-06-24] MEDS: LORazepam 0.5 MG tablet PO SCH ×4 (07:51→20:45)
[2019-06-24] MEDS: multivitamins, therapeutics tablet PO SCH (07:51)
[2019-06-24] MEDS: metoprolol tartrate 50mg tablet PO SCH ×2 (07:51→20:45)
[2019-06-24] MEDS: metFORMIN 500mg tablet PO SCH ×2 (07:52→17:36)
[2019-06-24] MEDS: loratadine 10mg tablet PO SCH (07:52)
[2019-06-24] MEDS: duloxetine 30mg CAPSULE.DR PO SCH ×2 (07:52→20:45)
[2019-06-24] MEDS: nystatin 15 GM powder TP SCH ×2 (07:53→20:45)
[2019-06-24] MEDS: fluticasone nasal spray 16GM bottle NS SCH (07:53)
[2019-06-24 08:00] VITALS: BP 126/80
[2019-06-24] MEDS ORDERED: docusate sod 100mg capsule PO SCH (08:00)
[2019-06-24] MEDS ORDERED: dextroamphetamine/amphetamine 5mg tablet PO SCH (08:00)
--- NOTE | 2019-06-24 14:42 | NUR ---
Nursing Progress Note Legal hold: N/A Pt is on voluntary status Report received from REYNA Wallace with use of SBAR Why are they here: Pt presented to ER due to suicidal ideation. Pt wanted to end her life by putting a plastic bag over her head to suffocate or overdose on pills. Pt recently had a medication change and the suicide thoughts have been overwhelming. Assessment What has happened this shift: Pt rated her depression and her anxiety at a 6/10 today, denied SI/HI/AH/VH. Pt ambulated with FWW to morning group with assist of 2, one person as a standby and the other pulling w/c behind the pt. Pt did need to take breaks every 30 feet or so and sit in the w/c, she is easily fatigued and becomes SOB at times with exertion. Pt is a 1 person assist for toileting and transfers, she is able to pull herself up into a standing position and able to sit herself down on the bed but needs help getting her legs into the bed. Pt is unable to wipe herself during toileting though states that she can do so at home as the set-up is different and she has 2 rails to hold onto. Pt's BG this am was 121. Pt has BLE edema worse on the RLE than the left. Edema is +3 pitting on right ankle and foot, +2 pitting on left ankle and foot, pretibial edema bilat is 1+ pitting. Pt states that she takes Lasix at home but does not wish to take it here as she will have to go pee too often and wet herself more. Pt's lungs are clear to auscultation. Encouraged pt to reconsider the Lasix here as she is more mobile than when she first came in. Pt continues on Klor-con. Elevated pt's feet/floated heels with pillow while in bed Pt c/o constipation, administered mag citrate per MD order this am as well as routine colace 100 mg, pt gets power pudding on her tray with meals, gave pt a prune juice this afternoon. Addressed edema as well as constipation with psychiatrist during morning flash meeting. Obtained order to increase Colace to 200 mg PO BID and to add Miralax once daily if pt amenable, a BMP was ordered to establish pt's current potassium level. Will pass on to address edema/Lasix issue with the hospitalist who is due to round today. Will give prn MOM at dinner time and endorse administration of prn Bisacodyl tab at HS to noc shift if pt still has not had a BM. S/I, H/I: Pt denies A/VH: Pt denies Sleep: Slept 7.5 hours per noc shift report, naps after meals. ADL's: 1 person assist for toileting and transfers, incontinent of urine, 2 person assist for ambulation w/ FWW, able to self-propel w/c. Group attendance: yes Were meds taken: Yes Any med S/E: Pt has snf tremors bilat hands and mouth, no current acute medication side effects noted or reported. Mental Status Exam Appearance: clean, dressed in a hospital gown , non-skid socks, wears sturdy shoes when up in w/c or ambulating Eye contact: Good Behavior: Pleasant, cooperative Speech: Clear, normal rate and rhythm Mood: Depressed, anxious Affect: anxious Thought process: Linear, perseveration/rumination on fears Thought Content: Fixated on constipation and worry she would be incontinent of stool today from laxatives, does not wish to take Lasix as she doesn't want to have to go the bathroom more frequently, focuses on what she cannot do instead of on what she can. Cognition: A/O X 4 Insight: Fair Judgment: Fair Interventions PRN's used: Will give prn MOM with dinner Therapeutic interventions: 1:1 assessment, active listening, therapeutic conversation, positive reinforcement, assistance with transfers, toileting, and ambulation, encouragement of pt autonomy, medication administration/monitoring/education, constipation management, Q15 minute checks. Restraints/seclusion/emergency medication: N/A Justification of Continued Inpatient Treatment: Pt remains depressed and anxious, she is deconditioned with poor activity tolerance. She is making progress with her mobility and ability to perform self-care. She needs further medication adjustment and monitoring as well as strengthening and formulation of a viable discharge plan to prevent decompensation, and to decrease the risk of patient readmittance. IDT will discuss possibility of a caregiver at home with her as pt seems to need more assistance and support in the home setting.
[2019-06-24 16:04] LABS: ALBUMIN 3.2 G/DL (3.4-5.0); ANION GAP 10 (8-16); BLOOD UREA NITROGEN 22 MG/DL (7-18); BUN/CREATININE RATIO 17.1 (6.6-38.0); CALCIUM 9.5 MG/DL (8.5-10.1); CHLORIDE 102 MMOL/L (99-107); CREATININE 1.29 MG/DL (0.40-0.90); GLUCOSE 131 MG/DL (70-104); POTASSIUM 4.8 MMOL/L (3.5-5.1); SODIUM 139 MMOL/L (135-145); TOTAL CARBON DIOXIDE 26.9 MMOL/L (24-32); eGFR 40 ML/MIN
[2019-06-24] MEDS: magnesium hydroxide 30ml (MOM) UD suspension PO PRN (18:14)
[2019-06-24 20:00] VITALS: BP 122/65
[2019-06-24 20:40] VITALS: BP 110/70
[2019-06-24] MEDS: docusate sod 100mg capsule PO SCH (20:44)
[2019-06-24] MEDS: OLANZapine 5mg rapidly disint. tablet PO SCH (20:46)
[2019-06-24] MEDS: mirtazapine 15mg tablet PO SCH (20:46)
[2019-06-24] MEDS: polyethylene glycol 3350 17gm powd pack PO SCH (21:00)
[2019-06-24] MEDS: acetaminophen 325mg tablet PO PRN (22:51)
--- NOTE | 2019-06-25 00:34 | NUR ---
Nursing Progress Note: Legal hold: Voluntary Client on voluntary DTS Report received from nurse with use of SBAR: REYNA Guardado Why are they here: Pt self presented to ER accompanied by her due to suicidal ideation. Pt wanted to end her life by putting a plastic bag over her head to suffocate or overdose on pills. Pt recently had a medication change and the suicide thoughts have been overwhelming. She also has chronic health and mobility issues. Assessment What has happened this shift: Pt. up in the Group Room at the beginning of the shift awaiting her nightly visit from her . She reports with relief to this field underwriter that she was able to have a large bowl movement. Pt. continues to be a minimal assist for transfers and toileting. 1:1 completed at bedside, pt. presents as cooperative and pleasant, she denies S/I and reports that her depression is better this evening. She denies any anxiety. When this field underwriter questioned pt. regarding what she believes to be her trigger, pt. 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 Bilateral ankles and feet continue to be edematous and are elevated in bed. This field underwriter provided education to pt. regarding the importance of taking Lasix and she reported understanding, but stated, "I just didn't want to take it because I don't want staff to have to help me to the bathroom all of the time." This field underwriter ensured pt. that she would not be a burden to staff, and pt. agreed to take Lasix starting tomorrow AM, obtained new order. Will endorse to AM shift and continue to monitor. S/I, H/I: Denies A/VH: N/A Sleep: Pt. reports she has been sleeping well ADL's: Pt. is able to ambulate with the use of a FWW, the assistance of two staff members, and her W/C behind her for safety as she becomes easily fatigued and SOB with exertion. However, pt. is a one-person assist for transferring and toileting, her mobility is improving and she reports increased strength. Group attendance: Yes, pt. repots she attends groups and identifies coping skills as breathing and grounding. Were meds taken: Held scheduled Mirlaax as pt. had already taken MOM and half of a Magnesium Citrate today with results. Any med S/E: None Mental Status Exam Appearance: Neat and appropriately dressed Eye contact: Good Behavior: Pleasant and cooperative Speech: WNL Mood: Animated Affect: Slightly blunted, animates with conversation Thought process: Linear Thought Content: Some continued preoccupation with anxieties regarding the future Cognition: A&O X4 Insight: Fair Judgment: Fair to good Interventions PRN's used: Tylenol X1 Therapeutic interventions: Introduced self and established rapport, maintained a safe and supportive environment, ensured contract for safety, encouraged independent performance of ADLs, maintained fall precautions, elevated pt. legs while in bed and educated regarding Lasix, monitored for any SOB, and maintained Q 15 min safety checks. Restraints/seclusion/emergency medication: N/A Justification of Continued Inpatient Treatment: Pt. continues to require medication adjustments and a safe and supportive environment.
[2019-06-25 07:56] VITALS: BP 132/78
[2019-06-25] MEDS: nystatin 15 GM powder TP SCH ×2 (07:56→20:34)
[2019-06-25] MEDS: fluticasone nasal spray 16GM bottle NS SCH (07:56)
[2019-06-25] MEDS: metFORMIN 500mg tablet PO SCH ×2 (07:56→17:35)
[2019-06-25] MEDS: dextroamphetamine/amphetamine 5mg tablet PO SCH (07:57)
[2019-06-25] MEDS: LORazepam 0.5 MG tablet PO SCH ×4 (07:57→20:33)
[2019-06-25] MEDS: furosemide 20MG tablet PO SCH (07:57)
[2019-06-25] MEDS: dabigatran 150mg capsule PO SCH ×2 (07:57→20:32)
[2019-06-25] MEDS: vitamin D (cholecalciferol) 1,000 unit tablet PO SCH (07:57)
[2019-06-25] MEDS: pantoprazole 40mg Tablet.DR PO SCH (07:57)
[2019-06-25] MEDS: loratadine 10mg tablet PO SCH (07:57)
[2019-06-25] MEDS: multivitamins, therapeutics tablet PO SCH (07:57)
[2019-06-25] MEDS: duloxetine 30mg CAPSULE.DR PO SCH ×2 (07:57→20:32)
[2019-06-25] MEDS: lactobacillus rhamnosus 10,000 MMU CELLS/CAPSULE PO SCH (07:58)
[2019-06-25] MEDS: metoprolol tartrate 50mg tablet PO SCH ×2 (07:58→20:00)
[2019-06-25] MEDS: potassium chloride 10mEq ER tablet PO SCH (08:00)
[2019-06-25] MEDS: docusate sod 100mg capsule PO SCH ×2 (08:00→20:33)
[2019-06-25] MEDS: diltiazem CD 120mg capsule (once-daily) PO SCH (08:00)
--- NOTE | 2019-06-25 18:27 | NUR ---
Nursing Progress Note: Legal hold: Voluntary Client on voluntary DTS Report received from nurse with use of SBAR: Jacquelin Howard RN Why are they here: Pt self presented to ER accompanied by her due to suicidal ideation. Pt wanted to end her life by putting a plastic bag over her head to suffocate or overdose on pills. Pt recently had a medication change and the suicide thoughts have been overwhelming. She also has chronic health and mobility issues. Assessment What has happened this shift: Patient is observed sleeping at change of shift. She wakes in a pleasant mood and remains that way throughout the day. She takes all her medications without issue. She eats all her meals and takes all her meds. She walks a few times with staff and pushes herself in the wheel chair. S/I, H/I: none reported A/VH: N/A Sleep: 7.75hrs NOC and rested during the day ADL's: Pt. is able to ambulate with the use of a FWW, the assistance of two staff members, and her W/C behind her for safety as she becomes easily fatigued and SOB with exertion. However, pt. is a one-person assist for transferring and toileting, her mobility is improving and she reports increased strength. Group attendance: Yes Were meds taken: yes Any med S/E: None Mental Status Exam Appearance: Neat and appropriately dressed Eye contact: direct Behavior: Pleasant and cooperative Speech: WNL Mood: content Affect: appropriate to mood Thought process: Linear Thought Content: WNL no delusional thought content expressed Cognition: A&O X4 Insight: Fair Judgment: Fair to good Interventions PRN's used: Tylenol X1 Therapeutic interventions: Introduced self and established rapport, maintained a safe and supportive environment, ensured contract for safety, encouraged independent performance of ADLs, maintained fall precautions, elevated pt. legs while in bed and educated regarding Lasix, monitored for any SOB, and maintained Q 15 min safety checks. Restraints/seclusion/emergency medication: N/A Justification of Continued Inpatient Treatment: Pt. continues to require medication adjustments and a safe and supportive environment.
[2019-06-25 20:00] VITALS: BP 105/61
[2019-06-25] MEDS: OLANZapine 5mg rapidly disint. tablet PO SCH (20:33)
[2019-06-25] MEDS: polyethylene glycol 3350 17gm powd pack PO SCH (20:34)
[2019-06-25] MEDS: mirtazapine 15mg tablet PO SCH (21:31)
--- NOTE | 2019-06-26 03:09 | NUR ---
Nursing Progress Note: Legal hold: Voluntary Client on voluntary DTS Report received from nurse with use of SBAR: REYNA Guardado Why are they here: Pt self presented to ER accompanied by her due to suicidal ideation. Pt wanted to end her life by putting a plastic bag over her head to suffocate or overdose on pills. Pt recently had a medication change and the suicide thoughts have been overwhelming. She also has chronic health and mobility issues. Assessment What has happened this shift: Pt. in community room at shift change waiting for a visit from her . He smiles at commercial real estate underwriter and makes good eye contact. She said her day is good, "I still feel pretty depressed but today was a little better, I don't even want to say that out loud because I don't want to jinx it." Pt is reassured and she says she is looking forward to seeing her and knows it will be a good visit." She says that in group today she learned about grounding herself she says she feels like this can be applied to her life by learning to focus on positive things in her life rather than the negative. Metoprolol was held due to decreased BP. Pt is transferring from bed to wheelchair and wheelchair to toilet well. She hits the call light every few hours during the night to use the restroom, but falls asleep easily after getting back in bed. S/I, H/I: Denies A/VH: denies Sleep: see sleep assessment notation ADL's: Pt. is able to ambulate with the use of a FWW, the assistance of two staff members, and her W/C behind her for safety as she becomes easily fatigued and SOB with exertion. However, pt. is a one-person assist for transferring and toileting, her mobility is improving and she reports increased strength. Group attendance: Yes, pt. repots she attends groups and identifies coping skills as breathing and grounding. Were meds taken: pt refused miralax Any med S/E: None Mental Status Exam Appearance: Neat and appropriately dressed Eye contact: Good Behavior: Pleasant and cooperative Speech:clear Mood: upbeat Affect: Slightly blunted, animates with conversation Thought process: Linear Thought Content: Some continued preoccupation with anxieties regarding the future Cognition: A&O X4 Insight: Fair Judgment: Fair to good Interventions PRN's used: NA Therapeutic interventions: Introduced self and established rapport, maintained a safe and supportive environment, ensured contract for safety, encouraged independent performance of ADLs, maintained fall precautions, elevated pt. legs while in bed and educated regarding Lasix, monitored for any SOB, and maintained Q 15 min safety checks. Restraints/seclusion/emergency medication: N/A Justification of Continued Inpatient Treatment: Pt. continues to require medication adjustments and a safe and supportive environment.
[2019-06-26 08:00] VITALS: BP 110/70
[2019-06-26] MEDS: dextroamphetamine/amphetamine 5mg tablet PO SCH (09:20)
[2019-06-26] MEDS: vitamin D (cholecalciferol) 1,000 unit tablet PO SCH (09:20)
[2019-06-26] MEDS: dabigatran 150mg capsule PO SCH ×2 (09:21→20:50)
[2019-06-26] MEDS: loratadine 10mg tablet PO SCH (09:21)
[2019-06-26] MEDS: pantoprazole 40mg Tablet.DR PO SCH (09:21)
[2019-06-26] MEDS: furosemide 20MG tablet PO SCH (09:21)
[2019-06-26] MEDS: metoprolol tartrate 50mg tablet PO SCH ×2 (09:21→20:49)
[2019-06-26] MEDS: metFORMIN 500mg tablet PO SCH ×2 (09:22→17:37)
[2019-06-26] MEDS: diltiazem CD 120mg capsule (once-daily) PO SCH (09:22)
[2019-06-26] MEDS: potassium chloride 10mEq ER tablet PO SCH (09:22)
[2019-06-26] MEDS: duloxetine 30mg CAPSULE.DR PO SCH ×2 (09:22→20:49)
[2019-06-26] MEDS: multivitamins, therapeutics tablet PO SCH (09:22)
[2019-06-26] MEDS: lactobacillus rhamnosus 10,000 MMU CELLS/CAPSULE PO SCH (09:22)
[2019-06-26] MEDS: docusate sod 100mg capsule PO SCH ×2 (09:22→20:50)
[2019-06-26] MEDS: LORazepam 0.5 MG tablet PO SCH ×4 (09:23→20:47)
[2019-06-26] MEDS: fluticasone nasal spray 16GM bottle NS SCH (09:23)
[2019-06-26] MEDS: nystatin 15 GM powder TP SCH ×2 (09:25→20:00)
[2019-06-26] MEDS: lamoTRIgine 25mg tablet PO SCH (09:25)
--- NOTE | 2019-06-26 14:54 | NUR ---
Nursing Progress Note: Legal hold: Voluntary Client on voluntary DTS Report received from nurse with use of SBAR: Jacquelin Howard RN Why are they here: Pt self presented to ER accompanied by her due to suicidal ideation. Pt wanted to end her life by putting a plastic bag over her head to suffocate or overdose on pills. Pt recently had a medication change and the suicide thoughts have been overwhelming. She also has chronic health and mobility issues. Assessment What has happened this shift: Received Pt in bed sleeping w/o distress. She woke up in a pleasant mood and was cooperative with morning transfer, adls and medications. She attended groups and meals and walked with assistance down one length of the [place]nandez. Pushes herself in wheel chair slowly. Showered in AM. Expressed anger at being in wheel chair while grateful to be alive. S/I, H/I: none reported A/VH: N/A Sleep: 7.75hrs NOC and rested during the day ADL's: Pt. is able to ambulate with the use of a FWW, the assistance of two staff members, and her W/C behind her for safety as she becomes easily fatigued and SOB with exertion. However, pt. is a one-person assist for transferring and toileting, her mobility is improving and she reports increased strength. Group attendance: Yes Were meds taken: yes Any med S/E: None Mental Status Exam Appearance: Neat and appropriately dressed Eye contact: direct Behavior: Pleasant and cooperative Speech: WNL Mood: content Affect: appropriate to mood Thought process: Linear Thought Content: WNL no delusional thought content expressed Cognition: A&O X4 Insight: Fair Judgment: Fair to good Interventions PRN's used: Tylenol X1 Therapeutic interventions: Introduced self and established rapport, maintained a safe and supportive environment, ensured contract for safety, encouraged independent performance of ADLs, maintained fall precautions, elevated pt. legs while in bed and educated regarding Lasix, monitored for any SOB, and maintained Q 15 min safety checks. Restraints/seclusion/emergency medication: N/A Justification of Continued Inpatient Treatment: Pt. continues to require medication adjustments and a safe and supportive environment.
[2019-06-26 19:31] VITALS: BP 105/79
[2019-06-26] MEDS: mirtazapine 15mg tablet PO SCH (20:49)
[2019-06-26] MEDS: OLANZapine 5mg rapidly disint. tablet PO SCH (20:49)
[2019-06-26] MEDS: polyethylene glycol 3350 17gm powd pack PO SCH (21:00)
--- NOTE | 2019-06-26 23:12 | NUR ---
Nursing Progress Note: Legal hold: Voluntary Client on voluntary DTS Report received from nurse with use of SBAR: Jacquelin Howard RN Why are they here: Pt self presented to ER accompanied by her due to suicidal ideation. Pt wanted to end her life by putting a plastic bag over her head to suffocate or overdose on pills. Pt recently had a medication change and the suicide thoughts have been overwhelming. She also has chronic health and mobility issues. Assessment What has happened this shift: Received Pt in group room finishing her dinner. She stayed in group room watching TV until her came to visit. After visit she returned to her room and did maya ADLs and got into bed. 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 Affect brightened considerably and she was able to express a full range of emotion and affect. S/I, H/I: none reported A/VH: N/A Sleep: Went to sleep easily ADL's: Pt. is able to ambulate with the use of a FWW, the assistance of two staff members, and her W/C behind her for safety as she becomes easily fatigued and SOB with exertion. However, pt. is a one-person assist for transferring and toileting, her mobility is improving and she reports increased strength. Group attendance: Yes Were meds taken: yes Any med S/E: None Mental Status Exam Appearance: Neat and appropriately dressed Eye contact: direct Behavior: Pleasant and cooperative Speech: WNL Mood: content Affect: appropriate to mood Thought process: Linear Thought Content: WNL no delusional thought content expressed Cognition: A&O X4 Insight: Fair Judgment: Fair to good Interventions PRN's used: None Therapeutic interventions: Introduced self and established rapport, maintained a safe and supportive environment, ensured contract for safety, encouraged independent performance of ADLs, maintained fall precautions, elevated pt. legs while in bed and educated regarding Lasix, monitored for any SOB, and maintained Q 15 min safety checks. Restraints/seclusion/emergency medication: N/A Justification of Continued Inpatient Treatment: Pt. continues to require medication adjustments and a safe and supportive environment.
[2019-06-27 07:54] VITALS: BP 111/73
[2019-06-27] MEDS: dextroamphetamine/amphetamine 5mg tablet PO SCH (08:07)
[2019-06-27] MEDS: metFORMIN 500mg tablet PO SCH ×2 (08:07→18:05)
[2019-06-27] MEDS: fluticasone nasal spray 16GM bottle NS SCH (08:07)
[2019-06-27] MEDS: loratadine 10mg tablet PO SCH (08:08)
[2019-06-27] MEDS: lactobacillus rhamnosus 10,000 MMU CELLS/CAPSULE PO SCH (08:08)
[2019-06-27] MEDS: dabigatran 150mg capsule PO SCH ×2 (08:08→21:09)
[2019-06-27] MEDS: furosemide 20MG tablet PO SCH (08:08)
[2019-06-27] MEDS: LORazepam 0.5 MG tablet PO SCH ×4 (08:08→20:58)
[2019-06-27] MEDS: vitamin D (cholecalciferol) 1,000 unit tablet PO SCH (08:08)
[2019-06-27] MEDS: potassium chloride 10mEq ER tablet PO SCH (08:08)
[2019-06-27] MEDS: diltiazem CD 120mg capsule (once-daily) PO SCH (08:08)
[2019-06-27] MEDS: multivitamins, therapeutics tablet PO SCH (08:08)
[2019-06-27] MEDS: pantoprazole 40mg Tablet.DR PO SCH (08:08)
[2019-06-27] MEDS: lamoTRIgine 25mg tablet PO SCH (08:08)
[2019-06-27] MEDS: docusate sod 100mg capsule PO SCH ×2 (08:09→20:58)
[2019-06-27] MEDS: duloxetine 30mg CAPSULE.DR PO SCH ×2 (08:09→21:01)
[2019-06-27] MEDS: metoprolol tartrate 50mg tablet PO SCH ×2 (08:10→20:00)
[2019-06-27] MEDS: nystatin 15 GM powder TP SCH ×2 (08:16→20:00)
--- NOTE | 2019-06-27 10:31 | NUR ---
Walked patient 120 feet with 2 staff members. Sat down to rest twice during walk.
--- NOTE | 2019-06-27 15:21 | NUR ---
Nursing Progress Note: Legal hold: Voluntary Client on voluntary DTS Report received from nurse with use of SBAR: REYNA Dennis Why are they here: Pt self presented to ER accompanied by her due to suicidal ideation. Pt wanted to end her life by putting a plastic bag over her head to suffocate or overdose on pills. Pt recently had a medication change and the suicide thoughts have been overwhelming. She also has chronic health and mobility issues. Assessment What has happened this shift: Received patient asleep in bed. Patient got up to use the bathroom and is able to transfer her self to and from the wheelchair into the toilet. Nystatin powder applied, but no evidence of used infection visible. Patient affect remains somewhat blunted, but patient states she feels a lot less depressed and denies suicidal thoughts at this time. Patient did attend both groups and was up for all meals. Patient also ambulated in the hallway with tech staff for 120 feet. S/I, H/I: none reported A/VH: N/A Sleep: nap after breakfast ADL's: Pt. is able to ambulate with the use of a FWW, the assistance of two staff members, and her W/C behind her for safety as she becomes easily fatigued and SOB with exertion. However, pt. is a one-person assist for transferring and toileting, her mobility is improving and she reports increased strength. Group attendance: Yes Were meds taken: yes Any med S/E: None Mental Status Exam Appearance: Neat and appropriately dressed Eye contact: direct Behavior: Pleasant and cooperative Speech: WNL Mood: content Affect: appropriate to mood Thought process: Linear Thought Content: WNL no delusional thought content expressed Cognition: A&O X4 Insight: Fair Judgment: Fair to good Interventions PRN's used: None Therapeutic interventions: Introduced self and established rapport, maintained a safe and supportive environment, ensured contract for safety, encouraged independent performance of ADLs, maintained fall precautions, elevated pt. legs while in bed and educated regarding Lasix, monitored for any SOB, and maintained Q 15 min safety checks. Restraints/seclusion/emergency medication: N/A Justification of Continued Inpatient Treatment: Pt. continues to require medication adjustments and a safe and supportive environment.
[2019-06-27 20:30] VITALS: BP 98/67
[2019-06-27 20:57] VITALS: BP 98/60
[2019-06-27] MEDS: OLANZapine 5mg rapidly disint. tablet PO SCH (20:58)
[2019-06-27] MEDS: polyethylene glycol 3350 17gm powd pack PO SCH (21:00)
[2019-06-27] MEDS: mirtazapine 15mg tablet PO SCH (21:01)
--- NOTE | 2019-06-28 01:17 | NUR ---
Nursing Progress Note: Legal hold: Voluntary Client on voluntary DTS Report received from nurse with use of SBAR: REYNA Guardado Why are they here: Pt self presented to ER accompanied by her due to suicidal ideation. Pt wanted to end her life by putting a plastic bag over her head to suffocate or overdose on pills. Pt recently had a medication change and the suicide thoughts have been overwhelming. She also has chronic health and mobility issues. Assessment What has happened this shift: Pt sitting in group room at shift change. This is patient's norm because she waits for visit from . Pt is later wheeled back to her room where she gets ready for bed. Pt has become stronger with her transfers. She has gone from a 2PA to a 1PA. Pt was feeling tired. Pt reports her depression has improved, but she is not ready to go home yet. Pt refused her Miralax even though she hasn't had a BM for 3 days. Pt would like to get this changed to day administration. Pt's mouth tremors and pt states she is not sure why this happens. Pt's Metoprolol was held due to decreased blood pressure 98/60. Pt continues with 2L of oxygen HS with good effect. S/I, H/I: Pt denies. None observed. A/VH: Pt denies. None observed. Sleep: See sleep assessment notation. 2L oxygen HS ADL's: Assistance. Pt. is able to ambulate with the use of a FWW, with assistance of 2 staff and wheelchair behind. Transfer from WC to toilet and WC to bed has improved. 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 Metoprolol held SBP 98. Any med S/E: None reported or observed. Mental Status Exam Appearance: Neat and appropriately dressed for unit. Eye contact: Good Behavior: Pleasant and cooperative Speech: Clear, normal rate and rhythm Mood: Better Affect: Slightly blunted, animates with conversation Thought process: Linear Thought Content: Some continued preoccupation with anxieties regarding the future Cognition: A&O X4 Insight: Fair Judgment: Fair to good Interventions PRN's used: None Therapeutic interventions: Introduced self and established rapport, maintained a safe and supportive environment, ensured contract for safety, encouraged independent performance of ADLs, maintained fall precautions, elevated pt. legs while in bed, monitored for any SOB, and maintained Q 15 min safety checks. Restraints/seclusion/emergency medication: N/A Justification of Continued Inpatient Treatment: Pt. continues to require medication adjustments and a safe and supportive environment.
[2019-06-28 07:36] VITALS: BP 115/79
[2019-06-28] MEDS: lamoTRIgine 25mg tablet PO SCH ×2 (08:00→08:30)
[2019-06-28] MEDS: LORazepam 0.5 MG tablet PO SCH ×4 (08:24→20:59)
[2019-06-28] MEDS: multivitamins, therapeutics tablet PO SCH (08:24)
[2019-06-28] MEDS: duloxetine 30mg CAPSULE.DR PO SCH ×2 (08:26→20:59)
[2019-06-28] MEDS: diltiazem CD 120mg capsule (once-daily) PO SCH (08:26)
[2019-06-28] MEDS: metoprolol tartrate 50mg tablet PO SCH ×2 (08:26→20:00)
[2019-06-28] MEDS: loratadine 10mg tablet PO SCH (08:27)
[2019-06-28] MEDS: pantoprazole 40mg Tablet.DR PO SCH (08:27)
[2019-06-28] MEDS: dextroamphetamine/amphetamine 5mg tablet PO SCH (08:28)
[2019-06-28] MEDS: lactobacillus rhamnosus 10,000 MMU CELLS/CAPSULE PO SCH (08:28)
[2019-06-28] MEDS: furosemide 20MG tablet PO SCH (08:29)
[2019-06-28] MEDS: vitamin D (cholecalciferol) 1,000 unit tablet PO SCH (08:29)
[2019-06-28] MEDS: metFORMIN 500mg tablet PO SCH ×2 (08:29→17:52)
[2019-06-28] MEDS: docusate sod 100mg capsule PO SCH ×2 (08:30→21:00)
[2019-06-28] MEDS: potassium chloride 10mEq ER tablet PO SCH (08:31)
[2019-06-28] MEDS: dabigatran 150mg capsule PO SCH ×2 (09:02→20:58)
[2019-06-28] MEDS: fluticasone nasal spray 16GM bottle NS SCH (09:02)
[2019-06-28] MEDS: nystatin 15 GM powder TP SCH ×2 (09:03→20:00)
--- NOTE | 2019-06-28 11:13 | NUR ---
Reassessment: Patient with fluctuating PO intake documented with some 50-75% PO intake however recently averaging 75-100% likely meeting nutrient needs. Pt with -14 kg since admit using bed scales. Possible that first weight scaled heavy d/t bed scale. Pt also with edema and receiving routine Lasix which could contribute to changes in wt. LBM 06/26. Pt receiving routine and PRN bowel care. Will continue to follow. Rec: 1. continue carb controlled diet 2. routine bowel care 3. weekly wt Addendum: 06/28/19 at [address] Amended: Links added.
[2019-06-28] MEDS ORDERED: polyethylene glycol 3350 17gm powd pack PO PRN (16:05)
--- NOTE | 2019-06-28 16:36 | NUR ---
Nursing Progress Note: Legal hold: Voluntary Client on voluntary DTS Report received from nurse with use of SBAR: REYNA George Why are they here: Pt self presented to ER accompanied by her due to suicidal ideation. Pt wanted to end her life by putting a plastic bag over her head to suffocate or overdose on pills. Pt recently had a medication change and the suicide thoughts have been overwhelming. She also has chronic health and mobility issues. Assessment What has happened this shift: Patient was sleeping at change of shift and was brought to breakfast in w/c. Patient has depressed affect. Patient denies SI/HI but is depressed. Patient does feel she is doing better. Patient also ambulated in the hallway with tech staff for 120 feet. Patient still has not had a BM. Miralax was changed to Daily PRN as patient would rather have it in the morning. S/I, H/I: none reported A/VH: N/A Sleep: nap after meals ADL's: Pt. is able to ambulate with the use of a FWW, the assistance of two staff members, and her W/C behind her for safety as she becomes easily fatigued and SOB with exertion. However, pt. is a one-person assist for transferring and toileting, her mobility is improving and she reports increased strength. Group attendance: Yes Were meds taken: yes Any med S/E: None Mental Status Exam Appearance: Neat and appropriately dressed Eye contact: direct Behavior: Pleasant and cooperative Speech: WNL Mood: content Affect: appropriate to mood Thought process: Linear Thought Content: WNL no delusional thought content expressed Cognition: A&O X4 Insight: Fair Judgment: Fair to good Interventions PRN's used: None Therapeutic interventions: Introduced self and established rapport, maintained a safe and supportive environment, ensured contract for safety, encouraged independent performance of ADLs, maintained fall precautions, elevated pt. legs while in bed and educated regarding Lasix, monitored for any SOB, and maintained Q 15 min safety checks. Restraints/seclusion/emergency medication: N/A Justification of Continued Inpatient Treatment: Pt. continues to require medication adjustments and a safe and supportive environment.
[2019-06-28 19:51] VITALS: BP 97/68
[2019-06-28] MEDS: OLANZapine 5mg rapidly disint. tablet PO SCH (20:59)
[2019-06-28] MEDS: mirtazapine 15mg tablet PO SCH (21:00)
--- NOTE | 2019-06-28 23:37 | NUR ---
Nursing Progress Note: Legal hold: Voluntary Client on voluntary DTS Report received from nurse with use of SBAR: REYNA Guardado Why are they here: Pt self presented to ER accompanied by her due to suicidal ideation. Pt wanted to end her life by putting a plastic bag over her head to suffocate or overdose on pills. Pt recently had a medication change and the suicide thoughts have been overwhelming. She also has chronic health and mobility issues. Assessment What has happened this shift: Pt sitting in group room at shift change. This is patient's norm because she waits for visit from . Pt walked from nurses station to her room. Pt stopped once momentarily to catch her breath. Pt's mobility is improving each day. Pt's affect is brighter, but pt still reports depression. Pt is medication compliant. Metoprolol was held due to decreased SBP. Pt continues on 2L of oxygen with effect. S/I, H/I: Pt denies. None observed. A/VH: Pt denies. None observed. Sleep: See sleep assessment notation. 2L oxygen HS ADL's: Assistance. Pt. is able to ambulate with the use of a FWW, with assistance of 1 staff and wheelchair behind. Transfer from to toilet and WC to bed continues to improve. 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 Mental Status Exam Appearance: Neat and appropriately dressed for unit. Eye contact: Good Behavior: Pleasant and cooperative Speech: Clear, normal rate and rhythm Mood: Better Affect: Slightly blunted, animates with conversation Thought process: Linear Thought Content: Some continued preoccupation with anxieties regarding the future Cognition: A&O X4 Insight: Fair Judgment: Fair to good Interventions PRN's used: None Therapeutic interventions: Introduced self and established rapport, maintained a safe and supportive environment, ensured contract for safety, encouraged independent performance of ADLs, maintained fall precautions, elevated pt. legs while in bed, monitored for any SOB, and maintained Q 15 min safety checks. Restraints/seclusion/emergency medication: N/A Justification of Continued Inpatient Treatment: Pt. continues to require medication adjustments and a safe and supportive environment.
[2019-06-29 08:00] VITALS: BP 124/78
[2019-06-29] MEDS: lamoTRIgine 25mg tablet PO SCH (08:00)
[2019-06-29] MEDS: diltiazem CD 120mg capsule (once-daily) PO SCH (08:42)
[2019-06-29] MEDS: metoprolol tartrate 50mg tablet PO SCH ×2 (08:42→20:00)
[2019-06-29] MEDS: potassium chloride 10mEq ER tablet PO SCH (08:42)
[2019-06-29] MEDS: dextroamphetamine/amphetamine 5mg tablet PO SCH (08:44)
[2019-06-29] MEDS: duloxetine 30mg CAPSULE.DR PO SCH ×2 (08:44→21:04)
[2019-06-29] MEDS: dabigatran 150mg capsule PO SCH ×2 (08:45→21:04)
[2019-06-29] MEDS: docusate sod 100mg capsule PO SCH ×2 (08:45→21:04)
[2019-06-29] MEDS: furosemide 20MG tablet PO SCH (08:46)
[2019-06-29] MEDS: loratadine 10mg tablet PO SCH (08:46)
[2019-06-29] MEDS: multivitamins, therapeutics tablet PO SCH (08:46)
[2019-06-29] MEDS: vitamin D (cholecalciferol) 1,000 unit tablet PO SCH (08:47)
[2019-06-29] MEDS: LORazepam 0.5 MG tablet PO SCH ×4 (08:47→21:03)
[2019-06-29] MEDS: lactobacillus rhamnosus 10,000 MMU CELLS/CAPSULE PO SCH (08:47)
[2019-06-29] MEDS: metFORMIN 500mg tablet PO SCH ×2 (08:47→17:58)
[2019-06-29] MEDS: pantoprazole 40mg Tablet.DR PO SCH (08:48)
[2019-06-29] MEDS: nystatin 15 GM powder TP SCH ×2 (08:48→20:00)
[2019-06-29] MEDS: fluticasone nasal spray 16GM bottle NS SCH (08:48)
--- NOTE | 2019-06-29 10:15 | NUR ---
Art Therapy Group, Continued: Patient attended group on 06/27/19. She was responsive to both the art, journaling and group process. Her content was reflective having both hope and insight. Using a sentence completion that began. I am standing at the doorway to hope, opening to change and new possibilities.....She wrote: "I think the black holes are becoming fewer and smaller... I feel there is hope for my future. I wish I could make better choices in life. I want to find a good way out of the darkness and let in the light. I need hope, not fear. I will look for love and goodness everywhere. I believe I should banish whatever negativity enters my mind. I am going to embrace well being, hope, love, kindness and all things positive."CHRISTAL Camarillo (Alena Marie) Marriage, Family Therapist #[id number] [facility] Expressive Arts Therapist Addendum: 06/29/19 at 1019 by Bernadette LUTZ Amended: Links added.
--- NOTE | 2019-06-29 13:32 | NUR ---
glass worker 1:1 The undersigned clinician met individually with pt per treatment team. Intervention= attuned empathic listening using biolateral sound. Pt. reports an emotional distress level of 6. Pt reports her suds reduced to a 5 and reports the music is helpful. Pt. reports distress felt in her throat and all over her body. Plan= continue to support pt and collaborate with treatment team. Jami GONG
--- NOTE | 2019-06-29 16:27 | NUR ---
Nursing Progress Note: Legal hold: Voluntary Client on voluntary DTS Report received from nurse with use of SBAR: REYNA Fontenot Why are they here: Pt self presented to ER accompanied by her due to suicidal ideation. Pt wanted to end her life by putting a plastic bag over her head to suffocate or overdose on pills. Pt recently had a medication change and the suicide thoughts have been overwhelming. She also has chronic health and mobility issues. Assessment What has happened this shift: Patient was sleeping at change of shift and was brought to breakfast in w/c. Patient has depressed affect. Patient denies SI/HI but is depressed. RN gave patient Miralax at breakfast. Patient hadn't had a BM by mid afternoon. RN disimpacted patient with a medium size BM. RN then sat on the toilet and had a very large BM. Patient had some brain spotting by Jami oncology social work. Patient was feeling better after BM. Patient appears brighter this afternoon. Patient also ambulated in the hallway with tech staff for 120 feet. S/I, H/I: denies A/VH: N/A Sleep: nap after meals ADL's: Pt. is able to ambulate with the use of a FWW, the assistance of two staff members, and her W/C behind her for safety as she becomes easily fatigued and SOB with exertion. However, pt. is a one-person assist for transferring and toileting, her mobility is improving and she reports increased strength. Group attendance: afternoon group. Were meds taken: yes Any med S/E: None Mental Status Exam Appearance: Neat and appropriately dressed Eye contact: direct Behavior: Pleasant and cooperative Speech: WNL Mood: content Affect: appropriate to mood Thought process: Linear Thought Content: WNL no delusional thought content expressed Cognition: A&O X4 Insight: Fair Judgment: Fair to good Interventions PRN's used: None Therapeutic interventions: Introduced self and established rapport, maintained a safe and supportive environment, ensured contract for safety, encouraged independent performance of ADLs, maintained fall precautions, elevated pt. legs while in bed and educated regarding Lasix, monitored for any SOB, and maintained Q 15 min safety checks. Restraints/seclusion/emergency medication: N/A Justification of Continued Inpatient Treatment: Pt. continues to require medication adjustments and a safe and supportive environment.
[2019-06-29 20:00] VITALS: BP 107/64
[2019-06-29] MEDS: mirtazapine 15mg tablet PO SCH (21:03)
[2019-06-29] MEDS: OLANZapine 5mg rapidly disint. tablet PO SCH (21:07)
--- NOTE | 2019-06-30 00:37 | NUR ---
Nursing Progress Note: Legal hold: Voluntary Client on voluntary DTS Report received from nurse with use of SBAR: REYNA Lr Why are they here: Pt self presented to ER accompanied by her due to suicidal ideation. Pt wanted to end her life by putting a plastic bag over her head to suffocate or overdose on pills. Pt recently had a medication change and the suicide thoughts have been overwhelming. She also has chronic health and mobility issues. Assessment What has happened this shift: Pt was in hallway at shift change. Pt is cooperative. Pt reports her depression /. Pt continues to be apprehensive about going home. Pt denies SI. Pt reports she is okay with her room change. Pt was medication compliant with Metoprolol was withheld due to decreased in SBP. Pt ambulated approx 150 fet with PCT and nurse. Pt's muscle strength continues to get better. S/I, H/I: Pt denies. None observed. A/VH: Pt denies. None observed. Sleep: See sleep assessment notation. 2L oxygen HS ADL's: Assistance. Pt. is able to ambulate with the use of a FWW, with assistance of 1 staff and wheelchair behind. Transfer from to toilet and WC to bed continues to improve. 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 Mental Status Exam Appearance: Neat and appropriately dressed for unit. Eye contact: Good Behavior: Pleasant and cooperative Speech: Clear, normal rate and rhythm Mood: Better Affect: Slightly blunted, animates with conversation Thought process: Linear Thought Content: Apprehensive about going home Cognition: A&O X4 Insight: Fair Judgment: Fair to good Interventions PRN's used: None Therapeutic interventions: Introduced self and established rapport, maintained a safe and supportive environment, ensured contract for safety, encouraged independent performance of ADLs, maintained fall precautions, elevated pt. legs while in bed, monitored for any SOB, and maintained Q 15 min safety checks. Restraints/seclusion/emergency medication: N/A Justification of Continued Inpatient Treatment: Pt. continues to require medication adjustments and a safe and supportive environment.
[2019-06-30 08:00] VITALS: BP 117/78
[2019-06-30] MEDS: lamoTRIgine 25mg tablet PO SCH (08:00)
[2019-06-30] MEDS: dextroamphetamine/amphetamine 5mg tablet PO SCH (08:03)
[2019-06-30] MEDS: dabigatran 150mg capsule PO SCH ×2 (08:04→21:20)
[2019-06-30] MEDS: vitamin D (cholecalciferol) 1,000 unit tablet PO SCH (08:04)
[2019-06-30] MEDS: metFORMIN 500mg tablet PO SCH ×2 (08:06→17:54)
[2019-06-30] MEDS: duloxetine 30mg CAPSULE.DR PO SCH ×2 (08:06→21:21)
[2019-06-30] MEDS: pantoprazole 40mg Tablet.DR PO SCH (08:07)
[2019-06-30] MEDS: LORazepam 0.5 MG tablet PO SCH ×4 (08:07→21:20)
[2019-06-30] MEDS: diltiazem CD 120mg capsule (once-daily) PO SCH (08:08)
[2019-06-30] MEDS: loratadine 10mg tablet PO SCH (08:09)
[2019-06-30] MEDS: metoprolol tartrate 50mg tablet PO SCH ×2 (08:09→20:00)
[2019-06-30] MEDS: potassium chloride 10mEq ER tablet PO SCH (08:10)
[2019-06-30] MEDS: multivitamins, therapeutics tablet PO SCH (08:11)
[2019-06-30] MEDS: furosemide 20MG tablet PO SCH (08:11)
[2019-06-30] MEDS: docusate sod 100mg capsule PO SCH ×2 (08:11→21:21)
[2019-06-30] MEDS: lactobacillus rhamnosus 10,000 MMU CELLS/CAPSULE PO SCH (08:12)
[2019-06-30] MEDS: fluticasone nasal spray 16GM bottle NS SCH (08:50)
[2019-06-30] MEDS: nystatin 15 GM powder TP SCH ×2 (08:51→20:00)
--- NOTE | 2019-06-30 12:38 | NUR ---
1:1 DISCHARGE PLANNING SW met w/ pt regarding potential discharge within the next 24 hours. Pt states she would prefer discharge tomorrow because she has not had a bowel movement yet today. SW encouraged pt to discuss w/ provider. SW discussed couples counseling benefits to pt and encouraged pt to begin this service on an outpatient basis. Pt states she agrees and to try this. SW will contact to encourage engagement. Rabia Araujo, Marina Manager PAPER CONSERVATOR [id number] Supervised by Fermin Menon, [id number]
--- NOTE | 2019-06-30 14:38 | NUR ---
Nursing Progress Note: Legal hold: Voluntary Client on voluntary DTS Report received from nurse with use of SBAR: REYNA Fontenot Why are they here: Pt self presented to ER accompanied by her due to suicidal ideation. Pt wanted to end her life by putting a plastic bag over her head to suffocate or overdose on pills. Pt recently had a medication change and the suicide thoughts have been overwhelming. She also has chronic health and mobility issues. Assessment What has happened this shift: Patient awoke at change of shift and as RN walking by her room, asked RN to assist patient to BR. Patient had a little difficulty with getting up but once she stood up she was steady and sat down on the w/c. RN assisted patient from w/c to toilet. RN cleansed patient's perineum once patient stood up. Patient required RN to lift her legs onto the bed. Patient has depressed affect and is afraid to go home but was told she will go home tomorrow. Patient denies SI/HI but is depressed. Patient hadn't had a BM by mid afternoon. Patient appears brighter this afternoon. Patient also ambulated in the hallway with tech staff for 120 feet. S/I, H/I: denies A/VH: N/A Sleep: nap after meals ADL's: Pt. is able to ambulate with the use of a FWW, the assistance of two staff members, and her W/C behind her for safety as she becomes easily fatigued and SOB with exertion. However, pt. is a one-person assist for transferring and toileting, her mobility is improving and she reports increased strength. Group attendance: both groups. Were meds taken: yes Any med S/E: None Mental Status Exam Appearance: Neat and appropriately dressed Eye contact: direct Behavior: Pleasant and cooperative Speech: WNL Mood: content Affect: appropriate to mood Thought process: Linear Thought Content: WNL no delusional thought content expressed Cognition: A&O X4 Insight: Fair Judgment: Fair to good Interventions PRN's used: None Therapeutic interventions: Introduced self and established rapport, maintained a safe and supportive environment, ensured contract for safety, encouraged independent performance of ADLs, maintained fall precautions, elevated pt. legs while in bed and educated regarding Lasix, monitored for any SOB, and maintained Q 15 min safety checks. Restraints/seclusion/emergency medication: N/A Justification of Continued Inpatient Treatment: Pt. continues to require medication adjustments and a safe and supportive environment.
[2019-06-30 19:28] VITALS: BP 95/68
[2019-06-30] MEDS: mirtazapine 15mg tablet PO SCH (21:20)
[2019-06-30] MEDS: OLANZapine 5mg rapidly disint. tablet PO SCH (21:21)
--- NOTE | 2019-07-01 00:23 | NUR ---
Nursing Progress Note: Legal hold: Voluntary Client on voluntary DTS Report received from nurse with use of SBAR: REYNA Lr Why are they here: Pt self presented to ER accompanied by her due to suicidal ideation. Pt wanted to end her life by putting a plastic bag over her head to suffocate or overdose on pills. Pt recently had a medication change and the suicide thoughts have been overwhelming. She also has chronic health and mobility issues. Assessment What has happened this shift: Patient is up on the unit at change of shift. Patient ambulates with help of staff 120 ft. She then uses the restroom with staff assistance and once done goes back to the group room to await her for a visit. After her visit an assessment is completed at the patients bedside. She denies SI/HI and reports mild depression. She verbalizes that she feels better about going home after visiting and discussing it with her . Stating "He's working on it." When talking about what she needs when she does arrive home. She is compliant with her evening medications and falls asleep right after medication administration. S/I, H/I: Denies A/VH: N/A Sleep: See sleep Assessment ADL's: Pt. is able to ambulate with the use of a FWW, the assistance of two staff members, and her W/C behind her for safety as she becomes easily fatigued and SOB with exertion. However, pt. is a one-person assist for transferring and toileting, her mobility is improving and she reports increased strength. Group attendance: No groups this shift. Were meds taken: Yes Any med S/E: None Mental Status Exam Appearance: Neat and appropriately dressed Eye contact: Direct Behavior: Pleasant and cooperative Speech: WNL Mood: Content Affect: Appropriate to mood Thought process: Linear Thought Content: WNL, focused on discharge plan Cognition: A&O X4 Insight: Fair Judgment: Fair to good Interventions PRN's used: None Therapeutic interventions: Introduced self and established rapport, maintained a safe and supportive environment, ensured contract for safety, encouraged independent performance of ADLs, maintained fall precautions, elevated pt. legs while in bed and educated regarding Lasix, monitored for any SOB, and maintained Q 15 min safety checks. Restraints/seclusion/emergency medication: N/A Justification of Continued Inpatient Treatment: Pt. continues to require medication adjustments and a safe and supportive environment.
[2019-07-01] MEDS: dextroamphetamine/amphetamine 5mg tablet PO SCH (07:56)
[2019-07-01] MEDS: multivitamins, therapeutics tablet PO SCH (07:56)
[2019-07-01] MEDS: vitamin D (cholecalciferol) 1,000 unit tablet PO SCH (07:57)
[2019-07-01] MEDS: lactobacillus rhamnosus 10,000 MMU CELLS/CAPSULE PO SCH (07:58)
[2019-07-01] MEDS: docusate sod 100mg capsule PO SCH (07:58)
[2019-07-01] MEDS: metoprolol tartrate 50mg tablet PO SCH (07:59)
[2019-07-01 08:00] VITALS: BP 119/69
[2019-07-01] MEDS: pantoprazole 40mg Tablet.DR PO SCH (08:00)
[2019-07-01] MEDS: loratadine 10mg tablet PO SCH (08:00)
[2019-07-01] MEDS: furosemide 20MG tablet PO SCH (08:00)
[2019-07-01] MEDS: duloxetine 30mg CAPSULE.DR PO SCH (08:00)
[2019-07-01] MEDS: lamoTRIgine 25mg tablet PO SCH (08:00)
[2019-07-01] MEDS: diltiazem CD 120mg capsule (once-daily) PO SCH (08:00)
[2019-07-01] MEDS: fluticasone nasal spray 16GM bottle NS SCH (08:00)
[2019-07-01] MEDS: potassium chloride 10mEq ER tablet PO SCH (08:01)
[2019-07-01] MEDS: LORazepam 0.5 MG tablet PO SCH ×2 (08:01→12:24)
[2019-07-01] MEDS: metFORMIN 500mg tablet PO SCH (08:01)
[2019-07-01] MEDS: nystatin 15 GM powder TP SCH (08:02)
[2019-07-01] MEDS: dabigatran 150mg capsule PO SCH (08:17)
[2019-07-01] MEDS ORDERED: DEXT5TAB31 PO (14:08)
[2019-07-01] MEDS ORDERED: LAMO25TA5 PO (14:08)
[2019-07-01] MEDS ORDERED: ATI0.5T PO (14:08)
--- NOTE | 2019-07-01 15:42 | NUR ---
Nursing Progress Note: Sonia Legal hold: Voluntary Client on voluntary DTS Report received from Emily Why are they here: Pt self presented to ER accompanied by her due to suicidal ideation. Pt wanted to end her life by putting a plastic bag over her head to suffocate or overdose on pills. Pt recently had a medication change and the suicide thoughts have been overwhelming. She also has chronic health and mobility issues. Assessment What has happened this shift: Received client at shift change. Client was in bed with eyes closed and respirations were even and unlabored. O2 was in place per Dr. jackson. Client woke with ease and participated in assessment process. Client did say she did not want to discharge today as she does not feel, "100 percent safe". Information relayed to clinical systems educator (Cedric)as well as JN Wilkins. Client attended morning group and participated. Also attended pm group prior to discharging. S/I, H/I: " I am not sure I am going to be safe when I discharge". A/VH: N/A; Denies Sleep: See sleep Assessment ADL's: Pt. is able to ambulate with the use of a FWW, the assistance of two staff members, and her W/C behind her for safety as she becomes easily fatigued and SOB with exertion. However, pt. is a one-person assist for transferring and toileting, her mobility is improving and she reports increased strength. Group attendance: Were meds taken: Yes Any med S/E: None Mental Status Exam Appearance: Neat and appropriately dressed Eye contact: Direct Behavior: Pleasant and cooperative Speech: WNL Mood: Content Affect: Appropriate to mood Thought process: Linear Thought Content: WNL, focused on discharge plan Cognition: A&O X4 Insight: Fair Judgment: Fair to good Interventions PRN's used: None Therapeutic interventions: Introduced self and established rapport, maintained a safe and supportive environment, ensured contract for safety, encouraged independent performance of ADLs, maintained fall precautions, elevated pt. legs while in bed and educated regarding Lasix, monitored for any SOB, and maintained Q 15 min safety checks. Restraints/seclusion/emergency medication: N/A Justification of Continued Inpatient Treatment: Pt. continues to require medication adjustments and a safe and supportive environment.
--- NOTE | 2019-07-01 15:43 | NUR ---
Discharge note: Client to discharge at 1600 hours today and will be picked up by her . All items were returned that were stored after admission. Client condition has improved and client has verbally contracted for safe behaviors after discharge. Follow up appointment info given during discharge interview. MRSA swab was collected and pictures were taken of inguinal area prior to discharge. All discharge instructions were given and narrative writer received a rebound demonstration of understanding.Client left in the company of her via wc at 1600 hours.
== END 2019-07-01 16:15 | disposition home or self-care (01) | DRG 885 ==
LOC: ADULT MH 23:39
PROVIDERS: ADMIT Psychiatry & Neurology Psychiatry; ATTEND Psychiatry & Neurology Psychiatry
PROC: 5A09357 Assistance with Respiratory Ventilation, Less than 24 Consecutive Hours, Continuous Positive Airway Pressure (ICD-10-PCS; principal; 2019-06-10)
DX: F33.2 Major depressive disorder, recurrent severe without psychotic features (principal); G82.20 Paraplegia, unspecified; N39.0 Urinary tract infection, site not specified; R45.851 Suicidal ideations; E11.9 Type 2 diabetes mellitus without complications; E78.00 Pure hypercholesterolemia, unspecified; E78.5 Hyperlipidemia, unspecified; F41.1 Generalized anxiety disorder; G25.0 Essential tremor; I48.0 Paroxysmal atrial fibrillation; I10 Essential (primary) hypertension; K59.00 Constipation, unspecified; F43.12 Post-traumatic stress disorder, chronic; Z96.641 Presence of right artificial hip joint; I48.91 Unspecified atrial fibrillation; K58.9 Irritable bowel syndrome, unspecified; Z79.02 Long term (current) use of antithrombotics/antiplatelets; Z79.84 Long term (current) use of oral hypoglycemic drugs; Z79.899 Other long term (current) drug therapy; Z81.8 Family history of other mental and behavioral disorders; Z82.0 Family history of epilepsy and other diseases of the nervous system; Z83.3 Family history of diabetes mellitus; Z86.011 Personal history of benign neoplasm of the brain; Z99.3 Dependence on wheelchair; Z88.8 Allergy status to other drugs, medicaments and biological substances; Z79.01 Long term (current) use of anticoagulants
CPT/HCPCS: 36415; 80048; 80053; 80061; 80305; 80320; 81001; 81025; 82948; 83036; 84443; 85025; 87081; 94660; 94760; 97110; 97116; 97161; 97530; 97535; 97542; Z7610

== ENCOUNTER 2023-01-24 14:26 | Outpatient (CLI) | payer MEDICARE, BC ==
[~2023-01-24 14:26] MED LIST changes: +ATI0.5T PO; -CLON0.1T PO; +DEXT5TAB31 PO; -DIAZ5TAB PO; +FEXO-310 PO; -FEXO-62 PO; +LAMO25TA5 PO; -METO100T14 PO; +MIRT-116 PO; -MIRT15TA PO; -PRAZ1CAP5 PO
== END 2023-01-24 23:59 | disposition home or self-care (01) ==
LOC: LAB SPEC 14:26
PROVIDERS: ATTEND Internal Medicine
DX: E11.9 Type 2 diabetes mellitus without complications (principal); R30.0 Dysuria; I10 Essential (primary) hypertension; F11.20 Opioid dependence, uncomplicated
CPT/HCPCS: 87077; 87088; 87186

== ENCOUNTER 2023-04-04 13:06 | Outpatient (CLI) | payer MEDICARE, BC ==
[2023-04-04 13:40] LABS: URINE AMPHETAMINE SCREEN NEGATIVE (Neg); URINE BARBITUATE SCREEN POSITIVE (Neg); URINE BENZODIAZEPINES SCREEN NEGATIVE (Neg); URINE CANNABINOID SCREEN NEGATIVE (Neg); URINE COCAINE SCREEN NEGATIVE (Neg); URINE METHADONE SCREEN NEGATIVE (Neg); URINE OPIATE SCREEN NEGATIVE (Neg); URINE PHENCYCLIDINE SCREEN NEGATIVE (Neg)
[2023-04-04 13:41] LABS: CLARITY,URINE SLIGHTLY CLOUDY (Clear); COLOR,URINE YELLOW (Yellow); GLUCOSE, URINE NEGATIVE (Neg); KETONES,URINE NEGATIVE (Neg); LEUKOCYTE ESTERASE ,URINE LARGE (Neg); NITRITES, URINE NEGATIVE (Neg); OCCULT BLOOD,URINE TRACE-INTACT (Neg); PROTEIN,URINE NEGATIVE (Neg); UROBILINOGEN,URINE 0.2 E.U/dL (0.2-1.0)
[2023-04-04 13:46] LABS: UA COLLECTION TYPE NON-SPECIFIED
[2023-04-04 13:48] LABS: BACTERIA,URINE 3+ /HPF (Neg); MUCUS STRANDS NONE SEEN /LPF (Neg); RBC,URINE 0-2 /HPF (0-2); SQUAMOUS EPITHELIAL CELL,UR NONE SEEN /LPF (FEW); WBC,URINE 30-50 /HPF (0-4)
== END 2023-04-04 23:59 | disposition home or self-care (01) ==
LOC: LAB SPEC 13:06
PROVIDERS: ATTEND Internal Medicine
DX: R30.0 Dysuria (principal); F11.20 Opioid dependence, uncomplicated; M54.9 Dorsalgia, unspecified
CPT/HCPCS: 80305; 81001; 87077; 87088; 87186